=== PATIENT | female | born 1975 | race Caucasian/White ===

== ENCOUNTER → 2022-01-02 | Outpatient (CLI) | payer BC ==
--- NOTE | 2022-01-02 11:55 | MM ---
Reason for Exam: Clinical finding. Indicated Problems: Palpable abnormality. Patient History: Menarche at age 10. Hysterectomy at age 38. Postmenopausal. Paternal grandmother had breast cancer, age 40. Risk Values: Trinity 5 year model risk: 0.7%. NCI Lifetime model risk: 6.7%. Tissue Density: The breast tissue is heterogeneously dense. This may lower the sensitivity of mammography. Findings: Analyzed By CAD. Microclip lateral left breast from prior biopsy. There is underlying 1.3 cm upper outer quadrant circumscribed nodularity on the left, posterior depth, possibly present on the 2017 exam. Possible distortion on the CC view did not clearly persist. Further ultrasound evaluation recommended. On the right, there is a scar marker along the upper outer quadrant. Underlying architectural distortion. Chronic nodularity 6:00 right breast further ultrasound evaluation recommended. Overall Assessment: Incomplete: need additional imaging evaluation, BI-RAD 0 Management: Diagnostic Breast Ultrasound of both breasts. Targeted to the upper outer quadrant 9:00 to 12:00 right breast and upper outer left breast, 11:00 to 3:00. Electronically signed and approved by: Aisha Moreno M.D. Radiologist
--- NOTE | 2022-01-02 12:33 | USB ---
Reason for Exam: Clinical finding. Patient History: Menarche at age 10. Hysterectomy at age 38. Postmenopausal. Paternal grandmother had breast cancer, age 40. Risk Values: Trinity 5 year model risk: 0.7%. NCI Lifetime model risk: 6.7%. Technique: Method: Targeted. Findings: The upper outer quadrant of both breasts and the axilla of both breasts were scanned. Targeted ultrasound right breast upper-outer quadrant 9:00 to 12:00 including the subareolar region and axilla. Corresponding to the 10:00 palpable site, also, incidentally just below the patient's scar marker, there is a very heterogeneous irregular area measuring 2.3 x 2.1 x 1.6 cm. Unclear if this represents scar or an underlying mass. Tissue sampling is recommended. No other solid or cystic lesion or axillary lymphadenopathy. Targeted ultrasound left breast upper outer quadrant 11:00 to 3:00 including the subareolar region and axilla. Multiple benign cysts are present, largest at the 1:00 position measuring 1.1 x 0.9 x 0.6 cm. No axillary adenopathy. . Overall Assessment: Suspicious, BI-RAD 4 Management: Ultrasound Core Biopsy of the right breast. 10:00 palpable mass versus scar. Results were given to the patient verbally at the time of exam. Electronically signed and approved by: Aisha Moreno M.D. Radiologist
== END | disposition home or self-care (01) ==
LOC: RADMAMWWP 10:46
PROVIDERS: ATTEND Family Medicine
DX: N63.10 Unspecified lump in the right breast, unspecified quadrant (principal); Z78.0 Asymptomatic menopausal state; Z80.3 Family history of malignant neoplasm of breast; Z98.890 Other specified postprocedural states
CPT/HCPCS: 77062; 77066

== ENCOUNTER → 2022-01-21 | Day surgery (SDC) | payer BC ==
--- NOTE | 2022-01-21 16:37 | USB ---
Risk Values: Trinity 5 year model risk: 0.7%. NCI Lifetime model risk: 6.7%. Prior Study Comparison: 01/02/2022 Bilateral US breast limited BILJUHI, [facility]. 01/02/2022 Bilateral MG 3D diag mammo w/cad RT, [facility]. Pathology Description: Location: 10 o'clock. Marker Left Behind. Needle Type: Mammotome Cores: 7 Gauge: 13 The procedure of ultrasound guided core biopsy was explained to the patient. Benefits, alternatives, and risks were discussed. An informed consent was then obtained. The patient was placed in supine positioning for imaging and for the procedure. The overlying skin was prepped and draped in usual sterile fashion. Lidocaine buffered with bicarbonate was used as anesthetic into the skin and subcutaneous tissue up to area of concern in the 10:00 right breast. A aimee was made with surgical scalpel. Under ultrasound guidance, a 13-gauge vacuum-assisted mammotome biopsy gun was used to obtain 6 core samples. As the biopsy site was very dense and we were concerned about inadequate specimen, an additional core was obtained with the Celero device. Following this, a Hydromark clip was left in lesion. The patient tolerated the procedure well without any immediate complication. The patient was kept in the radiology department for short stay after the procedure and then discharged home in stable condition. Postprocedure mammogram: The patient was transferred to mammography for physician ordered post procedure mammogram for clip placement verification. Post procedure mammogram shows clip in place. Impression: Note that clinical suspicion increased during the course of the biopsy. If results return benign, we would suggest reporting it as discordant and referring the patient to a breast surgeon for further clinical assessment as the area is palpable. Successful, uncomplicated ultrasound guided core biopsy of the extensive shadowing area of dense tissue corresponding to the palpable 10:00 site in the right breast, full pathology results to follow. Pathology Results: Results pending. Electronically signed and approved by: Aisha Moreno M.D. Radiologist
--- NOTE | 2022-01-31 10:33 | MM ---
Reason for Exam: Post Procedure Mammogram. Patient History: Menarche at age 10. Hysterectomy at age 38. Postmenopausal. Paternal grandmother had breast cancer, age 40. Risk Values: Trinity 5 year model risk: 0.7%. NCI Lifetime model risk: 6.7%. Prior Study Comparison: 01/02/2022 Bilateral US breast limited BILAT, [facility]. 01/02/2022 Bilateral MG 3D diag mammo w/cad RT, [facility]. Tissue Density: Right: The breast tissue is heterogeneously dense. This may lower the sensitivity of mammography. Overall Assessment: Post procedure mammogram for marker placement Management: Surgical Consultation of the right breast. Diagnostic Breast MRI of the right breast. Also, recommend MRI given poor delineation of mass on ultrasound and to exclude contralateral disease. Electronically signed and approved by: Aisha Moreno M.D. Radiologist
== END ==
LOC: RADUSWWP 12:50
PROVIDERS: ATTEND Family Medicine
DX: C50.411 Malignant neoplasm of upper-outer quadrant of right female breast (principal); Z78.0 Asymptomatic menopausal state
CPT/HCPCS: 88305; 88342; 88341; 77065; 19083; A4648

== ENCOUNTER → 2022-02-12 | Outpatient (CLI) | payer BC ==
[2022-02-12 11:00] VITALS: BP 136/82; PULSE 67; RESP 16; TEMP 98.2
--- NOTE | 2022-02-12 11:44 | P.GSHP ---
History of Present Illness H&P Date: 02/12/22 Chief Complaint: Invasive ductal carcinoma right breast Malou is a 46-year-old white female seen in consultation for Dr. Reyes regarding a biopsy-proven invasive ductal carcinoma of the right breast. She underwent a bilateral mammogram on . This revealed on the right a scar marker and some underlying architectural distortion. This led to additional workup of the right breast including an ultrasound which led to an ultrasound- guided core biopsy on [id number]. On the diagnostic ultrasound she was noted to have in the left breast a 2.3 cm heterogeneous irregular area. On the left breast cyst were identified but no lesions of concern. The biopsy revealed ER/OK positive HER-2/franko negative G2 invasive ductal carcinoma with lobular features. She had a right breast biopsy in the past 1994 which was benign. She had a left breast needle biopsy in the past, about 5 years ago which was benign. She could feel a lesion in her right breast for about 6 months. It did increase in size. It is painful. She is not complaining of any nipple discharge or skin changes. She is not complaining of any recent trauma or infection in the breast. Caffiene: 2 cups/day nicotine: stopped 6 years ago; used to smoke 1 PPD for 20 years chocolate: occasional Family History: paternal grandmother breast cancer 40 paternal cousin: breast cancer 56 Hormonal History: menarche: 10 M2 partial hysterectomy abnormal cells at 38; they left her ovaries hormones: none BCP: none Surgical History: Partial hysterectomy did not take ovaries Tonsillectomy Cyst removed right breast cyst removed right wrist Medical History: HTN hypothyroid double vision Social HIstory: nicotine: as above alcohol: none drugs: none - Constitutional Constitutional: Denies chills, Denies fever - EENT Eyes: denies blurred vision, denies pain Ears: deny: decreased hearing, tinnitus Ears, nose, mouth and throat: Denies headache, Denies sore throat - Breasts Breasts: bilateral: as per HPI - Cardiovascular Cardiovascular: Denies chest pain, Denies shortness of breath - Respiratory Respiratory: Denies cough, Denies 7 - Gastrointestinal Gastrointestinal: Denies abdominal pain, Denies diarrhea, Denies nausea, Denies vomiting - Genitourinary (Female) Genitourinary: Denies dysuria, Denies hematuria - Menstruation Menstruation: Reports post hysterectomy - Musculoskeletal Musculoskeletal: Denies myalgias - Integumentary Integumentary: Denies pruritus, Denies rash - Neurological Neurological: Denies numbness, Denies weakness - Psychiatric Psychiatric: Denies anxiety, Denies depression - Endocrine Comment: hypothyroid Endocrine: Denies fatigue, Denies weight change - Hematologic/Lymphatic Comment: none - Allergic/Immunologic Allergic/Immunologic: Reports as per HPI Past Medical History Past Medical History: Hypertension, Thyroid Disorder Additional Past Medical History / Comment(s): Hypothyroid.. History of Any Multi-Drug Resistant Organisms: None Reported Past Surgical History: Hysterectomy, Tonsillectomy Additional Past Surgical History / Comment(s): Right Breast incisional breast biopsy 1989??. Right wrist cyst removal. Past Anesthesia/Blood Transfusion Reactions: No Reported Reaction Past Psychological History: No Psychological Hx Reported Smoking Status: Former smoker Past Alcohol Use History: None Reported Additional Past Alcohol Use History / Comment(s): quit smoling 10 years ago Past Drug Use History: None Reported Medications and Allergies Home Medications Medication Instructions Recorded Confirmed Type Metoprolol Succinate [Toprol XL] 50 mg PO DAILY 01/08/22 02/12/22 History Thyroid,Pork [[place] Thyroid] 90 mg PO DAILY 01/08/22 02/12/22 History hydrALAZINE HCL 75 mg PO DAILY 01/08/22 02/12/22 History Allergies Allergy/AdvReac Type Severity Reaction Status Date / Time No Known Allergies Allergy Verified 02/12/22 10:54 Surgical - Exam Vital Signs Temp Pulse Resp BP Pulse Ox 98.2 F 67 16 136/82 95 02/12/22 10:55 02/12/22 10:55 02/12/22 10:55 02/12/22 10:55 02/12/22 10:55 - General no distress - Eyes normal ocular movement - ENT no hearing loss, no congestion - Neck trachea midline - Respiratory normal respiratory effort, clear to auscultation - Cardiovascular Rhythm: regular Heart Sounds: normal: S1, S2 - Abdomen Abdomen: soft, non tender, no guarding, no rigid, no rebound - Integumentary normal turgor - Neurologic no disoriented, no combative - Musculoskeletal normal gait - Psychiatric oriented to time, oriented to person, oriented to place, speech is normal, memory intact Breast Exam: BRA: 38D inspection: Bilateral grade 2/3 ptosis, right breast larger than left breast Palpation: Right breast: Multiple positional exam fibrocystic changes, ecchymosis from recent biopsy, upper outer quadrant approximately 2-1/2 cm area of nodularity otherwise no dominant masses or nodules of concern Right axilla: No adenopathy of concern Left breast: Multi-positional exam fibrocystic changes no discrete dominant masses or nodules of concern Left axilla: No adenopathy of concern Results Mammogram and ultrasound personally reviewed Assessment and Plan Assessment: Impression: Right breast invasive ductal carcinoma, T2 N0 M0 ER +OK+sitive HER-2/franko -G2 Plan: Presentation of case at tumor board Treatment options discussed with patient and her Cc: Dr. Reyes
== END ==
LOC: WWCWWP 10:41
PROVIDERS: ATTEND Surgery
DX: D05.11 Intraductal carcinoma in situ of right breast (principal); E03.9 Hypothyroidism, unspecified; I10 Essential (primary) hypertension; Z87.891 Personal history of nicotine dependence; Z79.899 Other long term (current) drug therapy

== ENCOUNTER → 2022-03-01 | Outpatient (CLI) | payer BC ==
--- NOTE | 2022-03-03 12:46 | BMR ---
EXAMINATION TYPE: MR breast BILAT wo/w con DATE OF EXAM: 03/03/2022 COMPARISON: Diagnostic 3-D bilateral breast mammogram January 02, 2022 BI-RADS 0. Bilateral breast ul trasound January 02, 2022 BI-RADS 4. HISTORY: Breast Ca newly diagnosed right-sided on biopsy January 21, 2022 invasive ductal carcinoma with lobular features. TECHNIQUE: A series of fat and water weighted images in the long and short axis views of both breasts are obtained in conjunction with dynamic contrast MRI with subtraction technique. The patient was i njected with 7 mL intravenous Gadavist gadolinium contrast. Three-dimensional and additional postpr ocessing imaging is created on independent workstation and reviewed during official interpretation of this study. FINDINGS: Heterogeneously dense fibroglandular tissue is redemonstrated bilaterally. T2 and STIR-weig hted images show multiple thin-walled cysts of varying size and shape scattered throughout fibrogland ular tissue bilaterally, findings correlate with bilateral breast ultrasound January 02, 2022. There are benign-appearing bilateral axillary lymph nodes present. Dynamic postcontrast imaging shows moder ate to severe background glandular enhancement making evaluation slightly suboptimal. With regards to the left breast there are several levels of diminished T1 signal or hemosiderin depos ition along with thin-walled cysts. Artifact from biopsy clip is present upper outer aspect. No great er than 5 mm enhancing masses are seen. No abnormal skin thickening is noted. The chest wall appears intact. With regards to the right breast there is artifact from biopsy clip seen axial image 107 series 401 m iddle to posterior depth outer slightly upper aspect. There is heterogeneous enhancement involving si gnificant portion of the outer half of the right breast centered mostly in the upper portion correspo nding to ill-defined lesion on ultrasound. The anterior to posterior length of abnormal nonmass enhan cement measures nearly 11.0 cm AP diameter by roughly 5 cm craniocaudal diameter by roughly 4.0 cm tr ansverse diameter when accounting for the adjacent small nodular areas of enhancement. No suspicious enhancing masses in the medial aspect right breast. No abnormal skin thickening. The chest wall is in tact. There are 2 prominent feeding vessels along the medial aspect of the right breast are noted. IMPRESSION: Known malignancy right breast has extensive involvement greatest in the anterior to poste rior dimension as detailed above. No MRI evidence for invasive malignancy in the left breast. No path ologic adenopathy noted. BI-RADS 6 biopsy-proven cancer right breast BI-RADS 2 benign findings left breast. Recommendation: Appropriate surgical and oncologic management of known left breast neoplasm.
== END | disposition home or self-care (01) ==
LOC: RADMRIMAIN 09:17
PROVIDERS: ATTEND Surgery
DX: C50.411 Malignant neoplasm of upper-outer quadrant of right female breast (principal)
CPT/HCPCS: 77049; A9585

== ENCOUNTER → 2022-03-25 | Outpatient (CLI) | payer BC ==
--- NOTE | 2022-03-25 12:22 | CT ---
EXAMINATION TYPE: CT ChestAbdPelvis w con DATE OF EXAM: 03/25/2022 COMPARISON: None HISTORY: Neoplasm right breast CT DLP: 1516 mGycm CONTRAST: CT scan of the chest, abdomen and pelvis is performed with Oral Contrast and with IV Contrast, patien t injected with 100 ml mL of Isovue 300. CT Chest: LUNGS: The lungs are clear and free of infiltrate or atelectasis. No pulmonary nodule or mass is det ected. No pleural effusion or CT evidence of interstitial lung disease. MEDIASTINUM: Thoracic aorta is of normal caliber. The heart is not enlarged. No evidence for media stinal mass or adenopathy. HILAR STRUCTURES: No evidence for mass. No hilar adenopathy is appreciated. OTHER: No significant abnormality. CONTRAST CT ABDOMEN AND PELVIS FINDINGS: LIVER/GB: No calcified gallstones. No space occupying hepatic lesion. Biliary tree is of normal ca liber. PANCREAS: No inflammation. No distinct mass. SPLEEN: No splenic enlargement. No lesion seen. ADRENALS: No nodule. No thickening. KIDNEYS/BLADDER: No hydronephrosis. 1.5 x 1.1 cm calculus lower pole right kidney. No distinct renal mass. BOWEL: Normal appendix. Normal bowel caliber. No inflammation. GENITAL ORGANS: No gross abnormality. LYMPH NODES: No greater than 1cm abdominal or pelvic lymph nodes are appreciated. AORTA: No significant abnormality. OSSEOUS STRUCTURES: No significant abnormality is seen. OTHER: No significant additional abnormality is seen. IMPRESSION: 1. No CT evidence to suggest metastatic disease to the chest abdomen or pelvis.
--- NOTE | 2022-03-25 16:07 | NM ---
EXAMINATION TYPE: NM bone scan whole body DATE OF EXAM: 03/25/2022 COMPARISON: Same day whole body CT study HISTORY: Breast cancer Delayed whole-body scanning was performed following the injection of 22.2 mCi Tc 99m MDP. Images acq uired 3 hours post injection. Whole body images in anterior and posterior projection along with addit ional spot images of the skull neck thorax and abdomen are all acquired. FINDINGS: No suspicious increased radiotracer uptake to suggest osseous metastatic disease to the bone or other suspicious abnormality. IMPRESSION: As above.
== END | disposition home or self-care (01) ==
LOC: RADNMMAIN 09:53
PROVIDERS: ATTEND Surgery
DX: C50.411 Malignant neoplasm of upper-outer quadrant of right female breast (principal)
CPT/HCPCS: 71260; 74177; 78306; A9503; Q9967

== ENCOUNTER → 2022-03-28 | Outpatient (CLI) | payer BC ==
[2022-03-28 14:30] VITALS: BP 150/94; PULSE 82; RESP 17; TEMP 98.7
--- NOTE | 2022-03-28 15:08 | P.PN ---
Subjective Progress Note Date: 03/28/22 Malou is a 46-year-old white female seen in consultation for Dr. Reyes regarding a biopsy-proven invasive ductal carcinoma of the right breast. She underwent a bilateral mammogram on . This revealed on the right a scar marker and some underlying architectural distortion. This led to additional workup of the right breast including an ultrasound which led to an ultrasound- guided core biopsy on 1119. On the diagnostic ultrasound she was noted to have in the left breast a 2.3 cm heterogeneous irregular area. On the left breast cyst were identified but no lesions of concern. The biopsy revealed ER/AK positive HER-2/franko negative G2 invasive ductal carcinoma with lobular features. She had a right breast biopsy in the past 1994 which was benign. She had a left breast needle biopsy in the past, about 5 years ago which was benign. She could feel a lesion in her right breast for about 6 months. It did increase in size. It is painful. She is not complaining of any nipple discharge or skin changes. She is not complaining of any recent trauma or infection in the breast. Genetic testing was performed which was negative Metastatic workup including bone scan and CT chest abdomen and pelvis was negative Oncotype was 44 Case was presented at tumor board on 132. Secondary to high Oncotype score this will be discussed with Dr. Lou for neoadjuvant chemotherapy. Breast MRI was performed which did not reveal any lesions of concern in the left breast, in the right breast heterogeneous enhancement involving the outer half was identified. The AP length of the abnormal enhancement was 11 cm x 5 cm. Caffiene: 2 cups/day nicotine: stopped 6 years ago; used to smoke 1 PPD for 20 years chocolate: occasional Family History: paternal grandmother breast cancer 40 paternal cousin: breast cancer 56 Hormonal History: menarche: 10 M2 partial hysterectomy abnormal cells at 38; they left her ovaries hormones: none BCP: none Surgical History: Partial hysterectomy did not take ovaries Tonsillectomy Cyst removed right breast cyst removed right wrist Medical History: HTN hypothyroid double vision Social HIstory: nicotine: as above alcohol: none drugs: none - Constitutional Constitutional: Denies chills, Denies fever - EENT Eyes: denies blurred vision, denies pain Ears: deny: decreased hearing, tinnitus Ears, nose, mouth and throat: Denies headache, Denies sore throat - Breasts Breasts: bilateral: as per HPI - Cardiovascular Cardiovascular: Denies chest pain, Denies shortness of breath - Respiratory Respiratory: Denies cough - Gastrointestinal Gastrointestinal: Denies abdominal pain, Denies diarrhea, Denies nausea, Denies vomiting - Genitourinary (Female) Genitourinary: Denies dysuria, Denies hematuria - Menstruation Menstruation: Reports post hysterectomy - Musculoskeletal Musculoskeletal: Denies myalgias - Integumentary Integumentary: Denies pruritus, Denies rash - Neurological Neurological: Denies numbness, Denies weakness - Psychiatric Psychiatric: Denies anxiety, Denies depression - Endocrine Comment: hypothyroid Endocrine: Denies fatigue, Denies weight change - Hematologic/Lymphatic Comment: none - Allergic/Immunologic Allergic/Immunologic: Reports as per HPI Past Medical History Past Medical History: Hypertension, Thyroid Disorder Additional Past Medical History / Comment(s): Hypothyroid.. History of Any Multi-Drug Resistant Organisms: None Reported Past Surgical History: Hysterectomy, Tonsillectomy Additional Past Surgical History / Comment(s): Right Breast incisional breast biopsy 1989??. Right wrist cyst removal. Past Anesthesia/Blood Transfusion Reactions: No Reported Reaction Past Psychological History: No Psychological Hx Reported Smoking Status: Former smoker Past Alcohol Use History: None Reported Additional Past Alcohol Use History / Comment(s): quit smoling 10 years ago Past Drug Use History: None Reported Medications and Allergies Home Medications Medication Instructions Recorded Confirmed Type Metoprolol Succinate [Toprol XL] 50 mg PO DAILY 01/08/22 02/12/22 History Thyroid,Pork [[place] Thyroid] 90 mg PO DAILY 01/08/22 02/12/22 History hydrALAZINE HCL 75 mg PO DAILY 01/08/22 02/12/22 History Allergies Allergy/AdvReac Type Severity Reaction Status Date / Time No Known Allergies Allergy Verified 02/12/22 10:54 Objective - Vital Signs Vital signs: Vital Signs Temp 98.7 F 03/28/22 14:28 Pulse 82 03/28/22 14:28 Resp 17 03/28/22 14:28 BP 150/94 03/28/22 14:28 Pulse Ox 96 03/28/22 14:28 FiO2 Intake & Output 03/27/22 03/28/22 03/28/22 18:59 06:59 18:59 Weight 72.575 kg - Constitutional General appearance: Present: cooperative - EENT Eyes: Present: EOMI ENT: Present: hearing grossly normal - Neck Neck: Present: normal ROM - Respiratory Respiratory: bilateral: CTA - Cardiovascular Heart sounds: normal: S1, S2 - Gastrointestinal General gastrointestinal: Present: soft - Integumentary Integumentary: Present: normal turgor - Musculoskeletal Musculoskeletal: Present: gait normal - Psychiatric Psychiatric: Present: A&O x's 3, appropriate affect, intact judgment & insight - Additional findings Additional findings: Breast Exam: BRA: 38D inspection: Bilateral grade 2/3 ptosis, right breast larger than left breast Palpation: Right breast: Multiple positional exam fibrocystic changes, ecchymosis from recent biopsy resolved, upper outer quadrant approximately 4-1/2 cm area of nodularity otherwise no dominant masses or nodules of concern Right axilla: No adenopathy of concern Left breast: Multi-positional exam fibrocystic changes no discrete dominant masses or nodules of concern Left axilla: No adenopathy of concern Assessment and Plan Assessment: Impression: Right breast invasive ductal carcinoma approximately 11 cm on MRI Right axilla no adenopathy of concern Metastatic workup negative Genetic testing negative Oncotype 44 Plan: Most likely neoadjuvant chemotherapy to shrink the tumor Patient would like to have a lumpectomy via a reduction mammoplasty incision appointment on Thursday Dr. Lou Cc: Dr. Reyes
== END ==
LOC: WWCWWP 14:14
PROVIDERS: ATTEND Surgery
DX: D05.11 Intraductal carcinoma in situ of right breast (principal)

== ENCOUNTER → 2022-06-19 | Outpatient (CLI) | payer BC ==
[2022-06-19 14:15] VITALS: BP 157/106; PULSE 104; RESP 18; TEMP 98.8
--- NOTE | 2022-06-19 14:36 | P.PN ---
Subjective Progress Note Date: 06/19/22 Progress Note Date: 03/28/22 Malou is a 46-year-old white female seen in consultation for Dr. Reyes regarding a biopsy-proven invasive ductal carcinoma of the right breast. She underwent a bilateral mammogram on . This revealed on the right a scar marker and some underlying architectural distortion. This led to additional workup of the right breast including an ultrasound which led to an ultrasound- guided core biopsy on [id number]. On the diagnostic ultrasound she was noted to have in the left breast a 2.3 cm heterogeneous irregular area. On the left breast cyst were identified but no lesions of concern. The biopsy revealed ER/[place] positive HER-2/franko negative G2 invasive ductal carcinoma with lobular features. She had a right breast biopsy in the past 1994 which was benign. She had a left breast needle biopsy in the past, about 5 years ago which was benign. She could feel a lesion in her right breast for about 6 months. It did increase in size. It is painful. She is not complaining of any nipple discharge or skin changes. She is not complaining of any recent trauma or infection in the breast. Genetic testing was performed which was negative Metastatic workup including bone scan and CT chest abdomen and pelvis was negative Oncotype was 44 Case was presented at tumor board on 1322. Secondary to high Oncotype score this will be discussed with Dr. Lou for neoadjuvant chemotherapy. Breast MRI was performed which did not reveal any lesions of concern in the left breast, in the right breast heterogeneous enhancement involving the outer half was identified. The AP length of the abnormal enhancement was 11 cm x 5 cm. 06-19-22 The patient received 4 courses of A/C, she will have 4 courses of Taxol she has received 1. This is given every 2 weeks. She believes that the tumor has decreased in size. She is tolerating the chemotherapy but complaining of fatigue. Caffiene: 2 cups/day nicotine: stopped 6 years ago; used to smoke 1 PPD for 20 years chocolate: occasional Family History: paternal grandmother breast cancer 38 paternal cousin: breast cancer 56 Hormonal History: menarche: 10 M2 partial hysterectomy abnormal cells at 38; they left her ovaries hormones: none BCP: none Surgical History: Partial hysterectomy did not take ovaries Tonsillectomy Cyst removed right breast cyst removed right wrist Medical History: HTN hypothyroid double vision Social HIstory: nicotine: as above alcohol: none drugs: none - Constitutional Constitutional: Denies chills, Denies fever - EENT Eyes: denies blurred vision, denies pain Ears: deny: decreased hearing, tinnitus Ears, nose, mouth and throat: Denies headache, Denies sore throat - Breasts Breasts: bilateral: as per HPI - Cardiovascular Cardiovascular: Denies chest pain, Denies shortness of breath - Respiratory Respiratory: Denies cough - Gastrointestinal Gastrointestinal: Denies abdominal pain, Denies diarrhea, Denies nausea, Denies vomiting - Genitourinary (Female) Genitourinary: Denies dysuria, Denies hematuria - Menstruation Menstruation: Reports post hysterectomy - Musculoskeletal Musculoskeletal: Denies myalgias - Integumentary Integumentary: Denies pruritus, Denies rash - Neurological Neurological: Denies numbness, Denies weakness - Psychiatric Psychiatric: Denies anxiety, Denies depression - Endocrine Comment: hypothyroid Endocrine: Denies fatigue, Denies weight change - Hematologic/Lymphatic Comment: none - Allergic/Immunologic Allergic/Immunologic: Reports as per HPI Past Medical History Past Medical History: Hypertension, Thyroid Disorder Additional Past Medical History / Comment(s): Hypothyroid.. History of Any Multi-Drug Resistant Organisms: None Reported Past Surgical History: Hysterectomy, Tonsillectomy Additional Past Surgical History / Comment(s): Right Breast incisional breast biopsy 1989??. Right wrist cyst removal. Past Anesthesia/Blood Transfusion Reactions: No Reported Reaction Past Psychological History: No Psychological Hx Reported Smoking Status: Former smoker Past Alcohol Use History: None Reported Additional Past Alcohol Use History / Comment(s): quit smoling 10 years ago Past Drug Use History: None Reported Medications and Allergies Home Medications Medication Instructions Recorded Confirmed Type Metoprolol Succinate [Toprol XL] 50 mg PO DAILY 01/08/22 02/12/22 History Thyroid,Pork [[place] Thyroid] 90 mg PO DAILY 01/08/22 02/12/22 History hydrALAZINE HCL 75 mg PO DAILY 01/08/22 02/12/22 History Allergies Allergy/AdvReac Type Severity Reaction Status Date / Time No Known Allergies Allergy Verified 02/12/22 10:54 Objective - Vital Signs Vital signs: Vital Signs Temp 98.8 F 06/19/22 14:13 Pulse 104 H 06/19/22 14:13 Resp 18 06/19/22 14:13 BP 157/106 06/19/22 14:13 Pulse Ox 94 L 06/19/22 14:13 FiO2 Intake & Output 06/18/22 06/19/22 06/19/22 18:59 06:59 18:59 Weight 73.482 kg - Constitutional General appearance: Present: cooperative - EENT Eyes: Present: EOMI ENT: Present: hearing grossly normal - Neck Neck: Present: normal ROM - Respiratory Respiratory: bilateral: CTA - Cardiovascular Rhythm: regular Heart sounds: normal: S1, S2 - Gastrointestinal General gastrointestinal: Present: soft - Integumentary Integumentary: Present: normal turgor - Musculoskeletal Musculoskeletal: Present: gait normal - Psychiatric Psychiatric: Present: A&O x's 3, appropriate affect, intact judgment & insight - Additional findings Additional findings: Breast Exam: BRA: 38D inspection: Bilateral grade 2/3 ptosis, right breast larger than left breast Palpation: Right breast: Multiple positional exam fibrocystic changes, the area of tumor has decreased in size is approximately now 2-2-1/2 cm in the upper outer quadrant otherwise no dominant masses or nodules of concern Right axilla: No adenopathy of concern Left breast: Multi-positional exam fibrocystic changes no discrete dominant masses or nodules of concern Left axilla: No adenopathy of concern Assessment and Plan Assessment: Impression: Right breast invasive ductal carcinoma approximately 11 cm on MRI has decreased significantly to approximately 2 and half centimeters of palpable area Right axilla no adenopathy of concern Metastatic workup negative Genetic testing negative Oncotype 44 Plan: Continue neoadjuvant chemotherapy to shrink the tumor Patient would like to have a lumpectomy via a reduction mammoplasty incision Follow up here the third week in June, we will get a tentative or date Cc: Dr. Reyes Additional CC's:
== END ==
LOC: WWCWWP 14:00
PROVIDERS: ATTEND Surgery
DX: D05.11 Intraductal carcinoma in situ of right breast (principal); E03.9 Hypothyroidism, unspecified; I10 Essential (primary) hypertension; N60.02 Solitary cyst of left breast; Z80.3 Family history of malignant neoplasm of breast; Z87.891 Personal history of nicotine dependence; Z79.899 Other long term (current) drug therapy; Z91.048 Other nonmedicinal substance allergy status

== ENCOUNTER → 2022-07-31 | Outpatient (CLI) | payer BC ==
--- NOTE | 2022-08-01 07:22 | BMR ---
EXAMINATION TYPE: MR breast BILAT wo/w con DATE OF EXAM: 07/31/2022 COMPARISON: Prior MRI bilateral breasts March 01, 2022 HISTORY: Right-sided breast cancer follow-up study after treatment. Breast Ca newly diagnosed right-s ided on biopsy January 21, 2022 invasive ductal carcinoma with lobular features. TECHNIQUE: A series of fat and water weighted images in the long and short axis views of both breasts are obtained in conjunction with dynamic contrast MRI with subtraction technique. The patient was i njected with 7.5 mL intravenous Gadavist gadolinium contrast. Three-dimensional and additional post processing imaging is created on independent workstation and reviewed during official interpretation of this study. FINDINGS: Heterogeneously dense fibroglandular tissue is redemonstrated bilaterally. T2 and STIR-weig hted images redemonstrate multiple thin-walled cysts of varying size and shape scattered throughout f ibroglandular tissue bilaterally. There are benign-appearing bilateral axillary lymph nodes redemonst rated. Dynamic postcontrast imaging shows mild to minimal background enhancement on current study. With regards to the left breast there are several levels of diminished T1 signal or hemosiderin depos ition along with thin-walled cysts centrally and scattered laterally. Artifact from biopsy clip is pr esent upper outer aspect. No greater than 5 mm enhancing masses or pathologic enhancement is seen. No abnormal skin thickening is noted. The chest wall appears intact. With regards to the right breast there is artifact from biopsy clip seen best axial image 34 series 5 01 middle depth outer slightly upper aspect. There is marked improvement in postcontrast enhancement with focal area of nonmass enhancement just posterior to the clip extending posteriorly and slightly laterally and slightly superiorly measuring approximately 2.1 x 0.9 cm current study image 692 serie s 801 significantly improved from the nonmass enhancement with nodularity extending anteriorly and oc cupying significant lateral portion of the right breast on prior study. Computer measures this residu al nonmass enhancement at 1.9 x 0.7 x 1.4 cm. No new areas of pathologic enhancement in the right brijesh ast. No abnormal skin thickening. The chest wall remain intact. IMPRESSION: Partial positive treatment response to known malignancy right breast is seen as detailed above. No MRI evidence for invasive malignancy in the left breast or new malignancy in the right [address]. No pathologic adenopathy noted. BI-RADS 6 biopsy-proven cancer right breast BI-RADS 2 benign findings left breast. Recommendation: Appropriate surgical and oncologic management of known right breast neoplasm.
== END | disposition home or self-care (01) ==
LOC: RADMRIMAIN 11:30
PROVIDERS: ATTEND Internal Medicine
DX: C50.411 Malignant neoplasm of upper-outer quadrant of right female breast (principal)
CPT/HCPCS: 77049; A9585

== ENCOUNTER → 2022-08-21 | Outpatient (CLI) | payer BC ==
--- NOTE | 2022-08-21 12:47 | P.PN ---
Subjective Progress Note Date: 08/21/22 Principal diagnosis: invasive lobular cancer left breast [id number] Malou is a 46-year-old white female seen in consultation for Dr. Reyes regarding a biopsy-proven invasive ductal carcinoma of the right breast. She underwent a bilateral mammogram on . This revealed on the right a scar marker and some underlying architectural distortion. This led to additional workup of the right breast including an ultrasound which led to an ultrasound- guided core biopsy on [id number]. On the diagnostic ultrasound she was noted to have in the right breast a 2.3 cm heterogeneous irregular area. On the left breast cyst were identified but no lesions of concern. The biopsy revealed ER/[place] positive HER-2/franko negative G2 invasive ductal carcinoma with lobular features. She had a right breast biopsy in the past 1994 which was benign. She had a left breast needle biopsy in the past, about 5 years ago which was benign. She could feel a lesion in her right breast for about 6 months. It did increase in size. It is painful. She is not complaining of any nipple discharge or skin changes. She is not complaining of any recent trauma or infection in the breast. Genetic testing was performed which was negative Metastatic workup including bone scan and CT chest abdomen and pelvis was negative Oncotype was 44 Case was presented at tumor board on 1322. Secondary to high Oncotype score this will be discussed with Dr. Lou for neoadjuvant chemotherapy. Breast MRI was performed which did not reveal any lesions of concern in the left breast, in the right breast heterogeneous enhancement involving the outer half was identified. The AP length of the abnormal enhancement was 11 cm x 5 cm. 06-19-22 The patient received 4 courses of A/C, she will have 4 courses of Taxol she has received 1. This is given every 2 weeks. She believes that the tumor has decreased in size. She is tolerating the chemotherapy but complaining of fatigue. 08-21-22 Ifrah has completed her soco-adjuvant chemotherapy; approximately 4 weeks ago for a [id number]-[id number] invasive lobular cancer of the right breast. She feels the tumor has decreased in size. Breast MRI performed on 6122. This revealed partial positive treatment response to no malignancy in the right breast the lesion has decreased from 11 cm to 2.1 x 0.9 cm. None mass enhancement is approximately 1.9 x 1.4 cm. No new areas of path logic enhancement in the right breast are identified. No lesions of concern are noted in the left breast No pathologic adenopathy was noted Caffiene: 2 cups/day nicotine: stopped 6 years ago; used to smoke 1 PPD for 20 years chocolate: occasional Family History: paternal grandmother breast cancer 40 paternal cousin: breast cancer 56 Hormonal History: menarche: 10 M2 partial hysterectomy abnormal cells at 38; they left her ovaries hormones: none BCP: none Surgical History: Partial hysterectomy did not take ovaries Tonsillectomy Cyst removed right breast cyst removed right wrist Medical History: HTN hypothyroid double vision Social HIstory: nicotine: as above alcohol: none drugs: none - Constitutional Constitutional: Denies chills, Denies fever - EENT Eyes: denies blurred vision, denies pain Ears: deny: decreased hearing, tinnitus Ears, nose, mouth and throat: Denies headache, Denies sore throat - Breasts Breasts: bilateral: as per HPI - Cardiovascular Cardiovascular: Denies chest pain, Denies shortness of breath - Respiratory Respiratory: Denies cough - Gastrointestinal Gastrointestinal: Denies abdominal pain, Denies diarrhea, Denies nausea, Denies vomiting - Genitourinary (Female) Genitourinary: Denies dysuria, Denies hematuria - Menstruation Menstruation: Reports post hysterectomy - Musculoskeletal Musculoskeletal: Denies myalgias - Integumentary Integumentary: Denies pruritus, Denies rash - Neurological Neurological: Denies numbness, Denies weakness - Psychiatric Psychiatric: Denies anxiety, Denies depression - Endocrine Comment: hypothyroid Endocrine: Denies fatigue, Denies weight change - Hematologic/Lymphatic Comment: none - Allergic/Immunologic Allergic/Immunologic: Reports as per HPI Past Medical History Past Medical History: Hypertension, Thyroid Disorder Additional Past Medical History / Comment(s): Hypothyroid.. History of Any Multi-Drug Resistant Organisms: None Reported Past Surgical History: Hysterectomy, Tonsillectomy Additional Past Surgical History / Comment(s): Right Breast incisional breast biopsy 1989??. Right wrist cyst removal. Past Anesthesia/Blood Transfusion Reactions: No Reported Reaction Past Psychological History: No Psychological Hx Reported Smoking Status: Former smoker Past Alcohol Use History: None Reported Additional Past Alcohol Use History / Comment(s): quit smoling 10 years ago Past Drug Use History: None Reported Medications and Allergies Home Medications Medication Instructions Recorded Confirmed Type Metoprolol Succinate [Toprol XL] 50 mg PO DAILY 01/08/22 02/12/22 History Thyroid,Pork [[place] Thyroid] 90 mg PO DAILY 01/08/22 02/12/22 History hydrALAZINE HCL 75 mg PO DAILY 01/08/22 02/12/22 History Allergies Allergy/AdvReac Type Severity Reaction Status Date / Time No Known Allergies Allergy Verified 02/12/22 10:54 Objective - Constitutional General appearance: Present: cooperative - EENT Eyes: Present: EOMI ENT: Present: hearing grossly normal - Neck Neck: Present: normal ROM - Respiratory Respiratory: bilateral: CTA - Cardiovascular Rhythm: regular Heart sounds: normal: S1, S2 - Gastrointestinal General gastrointestinal: Present: soft - Integumentary Integumentary: Present: normal turgor - Musculoskeletal Musculoskeletal: Present: gait normal - Psychiatric Psychiatric: Present: A&O x's 3, appropriate affect, intact judgment & insight - Additional findings Additional findings: Breast Exam: BRA: 38D inspection: Bilateral grade 2/3 ptosis, right breast larger than left breast Palpation: Right breast: Multiple positional exam fibrocystic changes, the area of tumor has decreased in size is approximately now 2-2-1/2 cm in the upper outer quadrant otherwise no dominant masses or nodules of concern Right axilla: No adenopathy of concern Left breast: Multi-positional exam fibrocystic changes no discrete dominant masses or nodules of concern Left axilla: No adenopathy of concern Assessment and Plan Assessment: Impression: Right breast invasive ductal carcinoma approximately 11 cm on MRI has decreased significantly to approximately 2 and half centimeters of palpable area Right axilla no adenopathy of concern Metastatic workup negative Genetic testing negative Oncotype 44 Plan: neoadjuvant chemotherapy to shrink the tumor completed Patient would like to have a lumpectomy After discussion with the patient and her the plan is for Needle localization right breast excisional lumpectomy, possible onco- plastic tissue transfer, right sentinel node biopsy, possible right axillary node dissection We marked and discussed the possibility of doing this via reduction mammoplasty incision however after discussion the patient wishes to have this done without mammoplasty or mastopexy incision pre-op clearance DR. Reyes Cc: Dr. Reyes
[2022-08-21 14:08] VITALS: BP 128/83; PULSE 74; RESP 17; TEMP 97.9
== END ==
LOC: WWCWWP 11:34
PROVIDERS: ATTEND Surgery
DX: C50.911 Malignant neoplasm of unspecified site of right female breast (principal); C50.912 Malignant neoplasm of unspecified site of left female breast; N60.02 Solitary cyst of left breast; I10 Essential (primary) hypertension; E03.9 Hypothyroidism, unspecified; H53.2 Diplopia; Z91.048 Other nonmedicinal substance allergy status; Z80.3 Family history of malignant neoplasm of breast; Z17.0 Estrogen receptor positive status [ER+]; Z79.899 Other long term (current) drug therapy; Z87.891 Personal history of nicotine dependence; Z51.11 Encounter for antineoplastic chemotherapy

== ENCOUNTER 2022-08-26 09:25 | Day surgery (SDC) | payer BC ==
[2022-08-21 14:58] VITALS: BMI 29.8
[~2022-08-26 09:25] MED LIST: DEXAMETHASONE SOD PHOSPHATE 4 MG/ML 1 ML VIAL IV ONE; HEPARIN SODIUM,PORCINE/PF 5,000 UNIT/0.5 ML SYRINGE SQ PRN; HYDROmorphone 0.5 MG/0.5 ML SYRINGE IVP PRN; LACTATED RINGERS 1,000 ML IV SCH; LIDOCAINE 1% (10MG/ML) FOR IV START INTRADERMA PRN; MIDAZOLAM 2 MG/2 ML VIAL IV PRN; ONDANSETRON 4 MG/2 ML VIAL IVP ONE; Pre Op ABX Message 1 EACH MISC MISCELLANE ONE
[2022-08-26] MEDS ORDERED: ALPRAZolam 0.5 MG TAB ONE (09:58)
[2022-08-26 10:09] VITALS: RESP 16
[2022-08-26] MEDS ORDERED: ALPRAZolam 0.5 MG TAB PO ONE ×2 (10:12)
--- NOTE | 2022-08-26 11:00 | P.NAPBC ---
NAPBC Queries - NAPBC Queries Was patient's case review presented at [facility] tumor board? If no, comment.: Yes Was patient's pathology reviewed at [facility]? If no, comment.: Yes Was breast conservation surgery offered? If no, comment.: Yes Was sentinel node biopsy offered? If no, comment.: Yes Was diagnosis confirmed by percutaneous core biopsy? If no, comment.: Yes Is patient mastectomy patient?: No Was a preop referral to reconstructive surgeon offered?: No Clinical Stage: [id number]+Pr+Her2-G2 right breast invasive lobular cancer prior to chemo was 11 Cm
[2022-08-26] MEDS ORDERED: LIDOCAINE 1% INJ 10MG/ML (20 ML MDV) SQ ONE (11:31)
[2022-08-26] MEDS ORDERED: DEXAMETHASONE SOD PHOSPHATE 4 MG/ML 1 ML VIAL IVP ONE (12:12)
[2022-08-26] MEDS ORDERED: SCOPOLAMINE 1 MG/72 HR PATCH TRANSDERM ONE (12:13)
[2022-08-26] MEDS ORDERED: ROCURONIUM 10 MG/ML (5 ML VIAL) IV ONE (12:14)
[2022-08-26] MEDS ORDERED: PROPOFOL 10 MG/ML 20 ML VIAL IV ONE (12:14)
[2022-08-26] MEDS ORDERED: PHENYLEPHRINE-0.9% NACL SYG 1,000 MCG/10 ML SYRINGE ONE (12:14)
[2022-08-26] MEDS ORDERED: HYDROmorphone (PF) 1 MG/ML ONE (12:14)
[2022-08-26] MEDS ORDERED: SUCCINYLCHOLINE CHLORIDE 200 MG/10 ML VIAL IV ONE (12:14)
[2022-08-26] MEDS ORDERED: fentaNYL (PF) 50 MCG/ML 2 ML AMP ONE (12:14)
[2022-08-26] MEDS ORDERED: MIDAZOLAM 2 MG/2 ML VIAL ONE (12:14)
[2022-08-26] MEDS ORDERED: LIDOCAINE 2% INJ 20 MG/ML (2 ML VIAL) ONE (12:14)
[2022-08-26] MEDS ORDERED: SODIUM CHLORIDE 0.9% 50 ML with ceFAZolin 2,000 MG IV ONE ×2 (12:19)
[2022-08-26] MEDS ORDERED: SODIUM CHLORIDE 0.9% 100 ML BAG ONE (12:19)
[2022-08-26] MEDS ORDERED: ceFAZolin 1,000 MG VIAL ONE (12:19)
[2022-08-26] MEDS ORDERED: LACTATED RINGERS 1,000 ML IV ONE (13:20)
--- NOTE | 2022-08-26 14:05 | P.OP ---
Date of Procedure: 08/26/22 Preoperative Diagnosis: Right breast invasive ductal carcinoma Postoperative Diagnosis: Same Procedure(s) Performed: Right breast sentinel node biopsy, right breast needle localization lumpectomy, onco-plastic tissue transfer 80 cm Anesthesia: CURTIS Surgeon: Dianna Comer Estimated Blood Loss (ml): 15 IV fluids (ml): 900 Pathology: other (Breast tissue, sentinel lymph node) Condition: stable Disposition: same day Indications for Procedure: Biopsy-proven right breast invasive ductal carcinoma Operative Findings: Fibrofatty breast tissue Description of Procedure: The patient was first seen in the radiology department. Localization with 2 needles of the area of concern in the right breast was performed. Additionally radiotracer was injected in the periareolar region. The patient was brought to the operative suite and following induction of anesthesia the neoprobe was used to interrogate the axilla. Radioactivity was identified. The right breast and axilla were prepped and draped in a sterile fashion. Using the neoprobe the area of greatest radioactivity in the axilla was identified. An incision was made and carried down to the radioactive lymph node. This was grasped using an Allis clamp. Careful dissection was performed and this was removed. The 10 second count on the lymph node was 76,196. The background count was 75. No additional lymph nodes of concern were palpated. The axilla was well irrigated. The deep tissues were closed using 3-0 Vicryl suture. This was followed by closure of this subcutaneous tissue with 3-0 Vicryl suture and closure of the skin with a 4-0 Monocryl. The area of the breast was then approached. An incision was made between both areas. The skin was resected in this area. Dissection was performed down to the pectoralis muscle. Surrounding tissue was excised. Hemostasis was attained using electrocautery device as well as the Harmonic scalpel. After we assured that hemostasis was attained the specimen was painted for orientation. Radiograph of the specimen revealed the area of concern had been removed. Additional margins were obtained superior inferior medial and laterally. Posteriorly dissection was onto the pectoralis muscle. Anteriorly the skin was taken. The patient had a medial and and lateral pillar developed. The medial pillar was 4 cm x 8 cm, the cavity was 8 centimeters by 3 cm, and the lateral pillar was 8 centimeters by 3 cm. A total of 80 cm of tissue was transferred. The previous were brought together and secured using 3- 0 Vicryl suture. Surgicel and pelvis was placed prior to doing this. Titanium clips were placed to zulay the cavity. The subcutaneous tissue was closed using 3-0 Vicryl suture. The subcuticular tissue was closed using 4-0 Monocryl. A nylon skin suture was placed. The patient tolerated the procedure in stable condition. All instrument and sponge counts were correct at the end of the case.
[2022-08-26 14:26] VITALS: TEMP 97
--- NOTE | 2022-08-26 14:29 | NM ---
EXAMINATION TYPE: NM sentinel node injection DATE OF EXAM: 08/26/2022 COMPARISON: NONE CLINICAL INDICATION: Female, 47 years old with history of BREAST CANCER C50.411; TECHNIQUE AND FINDINGS: The procedure of sentinel lymph node injection was explained to the patient. The benefits, alternatives, and risks were discussed. An informed consent was then obtained. Overlying skin is cleaned with sterile alcohol. Following this, 471 uCi Tc99m Tilmanocept was inject ed in the upper outer aspect of the right nipple intradermally. The patient tolerated the procedure well without any immediate complication. The patient was kept in the radiology department for short stay after the procedure and then taken to surgery for surgical p rocedure what is presumed intraoperative gamma probe will be used for sentinel lymph node detection. IMPRESSION: Right breast radiotracer injection for sentinel node localization as above.
--- NOTE | 2022-08-26 14:53 | USB ---
Findings: Grayscale imaging of the right breast was performed at 10:00 9 cm from the nipple. The lesion in question had a different morphology compared to pretreatment imaging. It was determined at that time to do mammography guided localization. Electronically signed and approved by: John Stewart DO
[2022-08-26] MEDS ORDERED: HYDROcodone/APAP 5-325MG 1 EACH TAB ONE (15:30)
[2022-08-26 15:57] VITALS: BP 113/75; PULSE 72
--- NOTE | 2022-08-27 08:38 | MM ---
Electronically signed and approved by: John Stewart, DO
--- NOTE | 2022-09-05 10:03 | MM ---
Prior Study Comparison: 01/02/2022 Bilateral MG 3D diag mammo w/cad RT, [facility]. 01/21/2022 Right MG diagnostic mammo RT wo CAD, [facility]. Pathology Description: Location: upper outer quadrant. Approach: Lateral to Medial Needle Type: 9 cm Kopan BRACKETED WITH 9 KOPAN...X2 The procedure of needle localization with wire placement and than surgical excision was explained to the patient. Benefits, alternatives, and risks were discussed. An informed consent was then obtained. The shortest pathway for procedure was chosen. Shortest pathway was lateral approach. The overlying skin was prepped and draped in usual sterile fashion. Lidocaine was used as anesthetic into the skin and subcutaneous tissue up to the level of area of concern. A 9.0 cm needle was used to zulay the anterior margin based on MRI imagining. It was placed via a lateral approach under mammographic guidance and then a second 9.0 cm needle was used to bookend the posterior aspect.. Subsequent 90 degrees mammogram show the needle to be in satisfactory position relative to the targeted area. At this point, wire was placed and the needle was withdrawn. The wire was fixed to patient's skin. Images were marked for surgeon. The patient tolerated the procedure well without any immediate complication. The patient was kept in the radiology department for short stay after the procedure and then taken to surgery for surgical excision. Fibroglandular tissue and wire are identified in specimen mammogram. The patient was kept in hospital for short stay after the procedure and then discharged home in stable condition. Impression: Successful, uncomplicated needle localization with wire placement and surgical excision of suspicious fibroglandular tissue in the right breast, full pathology results to follow. Pathology Results: Result: Malignant, Invasive ductal carcinoma. A. RIGHT BREAST, LUMPECTOMY: Invasive ductal carcinoma with lobular features, Grade 2, with focal high grade ductal carcinoma in situ (DCIS) status post neoadjuvant therapy. See surgical pathology cancer case summary and comment. All margins examined negative for in situ or invasive carcinoma. Invasive carcinoma very close to and less than 1 mm from medial, posterior, and inferior margins. DCIS very close to and less than 1 mm from inferior margin. B. SENTINEL LYMPH NODE, RIGHT, DISSECTION: One sentinel lymph node positive for micrometastatic carcinoma. CK7 and TUAN stains with appropriate controls on block B1 both positive within microcarcinoma in block B1. CK7 and TUAN stains with appropriate controls on block B2 positive for rare tumor cells in block B2 (same node represented in B1 with micrometastatic carcinoma). C. BREAST TISSUE, NEW SUPERIOR MARGIN, EXCISION: Negative for diagnostic in situ or invasive carcinoma and new superior margin benign. D. BREAST TISSUE, NEW INFERIOR MARGIN, EXCISION: Focal residual invasive ductal carcinoma with lobular features with invasive carcinoma focally present at new inferior margin (see comment). E. BREAST TISSUE, NEW MEDIAL MARGIN, EXCISION: Focal residual invasive ductal carcinoma with lobular features present very close to and less than 1 mm from new medial margin (see comment below). New medial margin negative with no tumor at inked surface. F. BREAST TISSUE, NEW LATERAL MARGIN, EXCISION: Negative for diagnostic in situ or invasive carcinoma and new lateral margin benign. Overall Assessment: Malignant Management: Diagnostic Mammogram of the right breast in 6 months. Electronically signed and approved by: John Stewart DO
== END 2022-08-26 16:40 | disposition home or self-care (01) ==
LOC: OR 09:25
PROVIDERS: ATTEND Surgery
DX: C50.911 Malignant neoplasm of unspecified site of right female breast (principal)
CPT/HCPCS: 19303; 38900; 38525; 88342; 88307; 88341; 76098; 19281; 76641; 38792; C1819; A9520; J2250; J0330; J1100; J2405; J0690; J2001 ×2; J3010; J1170; J2370; J2704; J1644

== ENCOUNTER → 2022-09-08 | Outpatient (CLI) | payer BC ==
--- NOTE | 2022-09-08 13:27 | P.PN ---
Progress Note - Text Progress Note Date: 09/08/22 Ifrah is a 47 -year-old white female status post right breast lumpectomy and sentinel node biopsy on [id number]. Pathology revealed new inferior margin with a 1 mm area of invasive cancer at the margin. All other margins were negative. The patient's nose status revealed 1 sentinel lymph node positive for micrometastatic disease. The patient tolerated the procedure without difficulty. Examination: Incision: Clean and dry Lungs: Clear Impression: Positive disease 1 mm lesion at inferior margin Reexcision of inferior margin Positive micrometastatic disease in sentinel lymph node removal of sutures CC: Dr. Eric Lou
[2022-09-08 13:46] VITALS: BP 140/84; PULSE 82; RESP 16; TEMP 98.4
== END ==
LOC: WWCWWP 12:30
PROVIDERS: ATTEND Surgery
DX: Z90.11 Acquired absence of right breast and nipple (principal); D05.11 Intraductal carcinoma in situ of right breast; J98.4 Other disorders of lung; Z91.048 Other nonmedicinal substance allergy status

== ENCOUNTER 2022-09-25 12:38 | Day surgery (SDC) | payer BC ==
[2022-09-23 12:13] VITALS: BMI 28.5
--- NOTE | 2022-09-25 12:30 | P.GSHP ---
History of Present Illness H&P Date: 09/25/22 Chief Complaint: right breast cancer 47-year-old female with history of right-sided breast cancer. Had Port-A-Cath placed earlier this year. Here today for Port-A-Cath removal. No issues with port. Past Medical History Past Medical History: Cancer, GERD/Reflux, Hypertension, Thyroid Disorder Additional Past Medical History / Comment(s): RIGHT BREAST CANCER-LAST CHEMO WAS 07/25/22- TO HAVE RADIATION AT LATER DATE. Hypothyroid.. History of Any Multi-Drug Resistant Organisms: None Reported Past Surgical History: Breast Surgery, Hysterectomy, Tonsillectomy Additional Past Surgical History / Comment(s): RIGHT BREAST US BX 01/21/22. Right Breast incisional breast biopsy 1989??. Right wrist cyst removal. RT BREAST LUMPECTOMY 08/26/22, PORT A CATH INSERTION Past Anesthesia/Blood Transfusion Reactions: No Reported Reaction, Motion Sickness Smoking Status: Former smoker - Past Family History Mother Family Medical History: No Reported History Medications and Allergies Home Medications Medication Instructions Recorded Confirmed Type Metoprolol Succinate [Toprol XL] 50 mg PO BID 01/08/22 09/23/22 History Thyroid,Pork [[place] Thyroid] 90 mg PO QAM 01/08/22 09/23/22 History hydrALAZINE HCL 75 mg PO TID 01/08/22 09/23/22 History Multivitamins, Thera [Multivitamin 1 tab PO DAILY 04/07/22 09/23/22 History (formulary)] Omeprazole Magnesium [PriLOSEC OTC] 20 mg PO QAM PRN 04/07/22 09/23/22 History valACYclovir HCL [Valacyclovir] 1 gm PO DAILY PRN 04/07/22 09/23/22 History Allergies Allergy/AdvReac Type Severity Reaction Status Date / Time adhesive AdvReac Rash/Hives Verified 09/23/22 12:05 Surgical - Exam Physical exam: General: Well-developed, well-nourished HEENT: Normocephalic, sclerae nonicteric Abdomen: Nontender, nondistended Extremities: No edema Neuro: Alert and oriented Assessment and Plan (1) Breast cancer, right Narrative/Plan: Will proceed with Port-A-Cath removal at this time. Status: Acute Code(s): C50.911 - MALIGNANT NEOPLASM OF UNSP SITE OF RIGHT FEMALE BREAST SNOMED Code(s): 556320055
[~2022-09-25 12:38] MED LIST changes: +ACETAMINOPHEN TAB 500 MG TAB PO PRN; -LIDOCAINE 1% (10MG/ML) FOR IV START INTRADERMA PRN; -MIDAZOLAM 2 MG/2 ML VIAL IV PRN; -Pre Op ABX Message 1 EACH MISC MISCELLANE ONE
[2022-09-25 13:13] VITALS: TEMP 97
[2022-09-25] MEDS ORDERED: LIDOCAINE 1% INJ 10MG/ML (20 ML MDV) SQ ONE ×2 (13:29→13:53)
[2022-09-25] MEDS ORDERED: PHENYLEPHRINE-0.9% NACL SYG 1,000 MCG/10 ML SYRINGE ONE (13:31)
[2022-09-25] MEDS ORDERED: MIDAZOLAM 2 MG/2 ML VIAL ONE (13:31)
[2022-09-25] MEDS ORDERED: fentaNYL (PF) 50 MCG/ML 2 ML AMP ONE (13:31)
[2022-09-25] MEDS ORDERED: KETOROLAC 15 MG/ML 1 ML VIAL ONE (13:31)
[2022-09-25] MEDS ORDERED: PROPOFOL 10 MG/ML 20 ML VIAL IV ONE (13:31)
[2022-09-25] MEDS ORDERED: ACETAMINOPHEN TAB 325 MG TAB PO PRN (14:09)
[2022-09-25] MEDS ORDERED: NALOXONE 0.4 MG/ML 1 ML VIAL IV PRN (14:09)
--- NOTE | 2022-09-25 14:09 | P.OP ---
Date of Procedure: 09/25/22 Procedure(s) Performed: PREOPERATIVE DIAGNOSIS: Right breast cancer POSTOPERATIVE DIAGNOSIS: Same PROCEDURE: Port-A-Cath removal SURGEON: Serafin EBL: Minimal ANESTHESIA: Sedation COMPLICATIONS: None OPERATIVE PROCEDURE: Patient was placed in the supine position. The patient was sedated per anesthesia that time. The chest was prepped and draped in the usual sterile fashion. The skin was localized with Marcaine solution. The previous incision was re-incised using a scalpel. The port was easily excised using accommodation of blunt dissection sharp dissection and electrocautery. The subcutaneous tissues were reapproximated using 3-0 Vicryl sutures. The skin was reapproximated using 4-0 Monocryl sutures. Skin glue was then applied. DISPOSITION: Stable to recovery room
[2022-09-25 14:48] VITALS: BP 105/77; PULSE 62; RESP 20
== END 2022-09-25 14:58 | disposition home or self-care (01) ==
LOC: OR 12:38
PROVIDERS: ATTEND Surgery
DX: C50.911 Malignant neoplasm of unspecified site of right female breast (principal); K21.9 Gastro-esophageal reflux disease without esophagitis; I10 Essential (primary) hypertension; E03.9 Hypothyroidism, unspecified; Z90.710 Acquired absence of both cervix and uterus; Z90.89 Acquired absence of other organs; Z98.890 Other specified postprocedural states; Z87.891 Personal history of nicotine dependence; Z85.3 Personal history of malignant neoplasm of breast; Z79.890 Hormone replacement therapy; Z79.899 Other long term (current) drug therapy
CPT/HCPCS: 36590; J2250; J1100; J0690; J2405; J2001; J3010; J1885; J2704; J1644; J2371

== ENCOUNTER → 2022-10-07 | Day surgery (SDC) | payer BC ==
[2022-10-02 13:44] VITALS: BMI 28.1
--- NOTE | 2022-10-03 11:56 | P.PN ---
Subjective Progress Note Date: 10/03/22 Invasive ductal carcinoma with lobular features right breast [id number]+Her2- G2 Malou is a 46-year-old white female seen in consultation for Dr. Reyes regarding a biopsy-proven invasive ductal with lobular features carcinoma of the right breast. She underwent a bilateral mammogram on . This revealed on the right a scar marker and some underlying architectural distortion. This led to additional workup of the right breast including an ultrasound which led to an ultrasound-guided core biopsy on [id number]. On the diagnostic ultrasound she was noted to have in the right breast a 2.3 cm heterogeneous irregular area. On the left breast cyst were identified but no lesions of concern. The biopsy revealed ER/IN positive HER-2/franko negative G2 invasive ductal carcinoma with lobular features. She had a right breast biopsy in the past 1994 which was benign. She had a left breast needle biopsy in the past, about 5 years ago which was benign. She could feel a lesion in her right breast for about 6 months. It did increase in size. It is painful. She is not complaining of any nipple discharge or skin changes. She is not complaining of any recent trauma or infection in the breast. Genetic testing was performed which was negative Metastatic workup including bone scan and CT chest abdomen and pelvis was negative Oncotype was 44 Case was presented at tumor board on 1322. Secondary to high Oncotype score this will be discussed with Dr. Lou for neoadjuvant chemotherapy. Breast MRI was performed which did not reveal any lesions of concern in the left breast, in the right breast heterogeneous enhancement involving the outer half was identified. The AP length of the abnormal enhancement was 11 cm x 5 cm. 06-19-22 The patient received 4 courses of A/C, she will have 4 courses of Taxol she has received 1. This is given every 2 weeks. She believes that the tumor has decreased in size. She is tolerating the chemotherapy but complaining of fatigue. 08-21-22 Ifrah has completed her soco-adjuvant chemotherapy; approximately 4 weeks ago for a [id number]+IN+Her2-G2 invasive ductal carcinoma with lobular features of the right breast. She feels the tumor has decreased in size. Breast MRI performed on 6122. This revealed partial positive treatment response to no malignancy in the right breast the lesion has decreased from 11 cm to 2.1 x 0.9 cm. None mass enhancement is approximately 1.9 x 1.4 cm. No new areas of pathologic enhancement in the right breast are identified. No lesions of concern are noted in the left breast No pathologic adenopathy was noted 10-03-22 The patient on underwent a right breast lumpectomy and sentinel node biopsy. Pathology revealed a grade 2 invasive ductal carcinoma with lobular features. Tumor size was 14 mm. On a new inferior margin there was noted be focal residual invasive ductal carcinoma. All other margins were negative. The patient had a sentinel node removed on the right which was positive for micrometastatic disease. The patient postoperatively was doing well. Secondary to the fact there was a positive inferior margin it is recommended that reexcision of the inferior margin be performed. Caffiene: 2 cups/day nicotine: stopped 6 years ago; used to smoke 1 PPD for 20 years chocolate: occasional Family History: paternal grandmother breast cancer 40 paternal cousin: breast cancer 56 Hormonal History: menarche: 10 M2 partial hysterectomy abnormal cells at 38; they left her ovaries hormones: none BCP: none Surgical History: Partial hysterectomy did not take ovaries Tonsillectomy Cyst removed right breast cyst removed right wrist Medical History: HTN hypothyroid double vision Social HIstory: nicotine: as above alcohol: none drugs: none - Constitutional Constitutional: Denies chills, Denies fever - EENT Eyes: denies blurred vision, denies pain Ears: deny: decreased hearing, tinnitus Ears, nose, mouth and throat: Denies headache, Denies sore throat - Breasts Breasts: bilateral: as per HPI - Cardiovascular Cardiovascular: Denies chest pain, Denies shortness of breath - Respiratory Respiratory: Denies cough - Gastrointestinal Gastrointestinal: Denies abdominal pain, Denies diarrhea, Denies nausea, Denies vomiting - Genitourinary (Female) Genitourinary: Denies dysuria, Denies hematuria - Menstruation Menstruation: Reports post hysterectomy - Musculoskeletal Musculoskeletal: Denies myalgias - Integumentary Integumentary: Denies pruritus, Denies rash - Neurological Neurological: Denies numbness, Denies weakness - Psychiatric Psychiatric: Denies anxiety, Denies depression - Endocrine Comment: hypothyroid Endocrine: Denies fatigue, Denies weight change - Hematologic/Lymphatic Comment: none - Allergic/Immunologic Allergic/Immunologic: Reports as per HPI Past Medical History Past Medical History: Hypertension, Thyroid Disorder Additional Past Medical History / Comment(s): Hypothyroid.. History of Any Multi-Drug Resistant Organisms: None Reported Past Surgical History: Hysterectomy, Tonsillectomy Additional Past Surgical History / Comment(s): Right Breast incisional breast biopsy 1989??. Right wrist cyst removal. Past Anesthesia/Blood Transfusion Reactions: No Reported Reaction Past Psychological History: No Psychological Hx Reported Smoking Status: Former smoker Past Alcohol Use History: None Reported Additional Past Alcohol Use History / Comment(s): quit smoling 10 years ago Past Drug Use History: None Reported Medications and Allergies Home Medications Medication Instructions Recorded Confirmed Type Metoprolol Succinate [Toprol XL] 50 mg PO DAILY 01/08/22 02/12/22 History Thyroid,Pork [[place] Thyroid] 90 mg PO DAILY 01/08/22 02/12/22 History hydrALAZINE HCL 75 mg PO DAILY 01/08/22 02/12/22 History Allergies Allergy/AdvReac Type Severity Reaction Status Date / Time No Known Allergies Allergy Verified 02/12/22 10:54 Objective - Vital Signs Vital signs: Intake & Output 10/02/22 10/03/22 10/03/22 18:59 06:59 18:59 Weight 69.853 kg - Constitutional General appearance: Present: cooperative - EENT Eyes: Present: edentulous ENT: Present: hearing grossly normal - Neck Neck: Present: normal ROM - Respiratory Respiratory: bilateral: CTA - Cardiovascular Heart sounds: normal: S1, S2 - Gastrointestinal General gastrointestinal: Present: soft - Integumentary Integumentary: Present: normal turgor - Musculoskeletal Musculoskeletal: Present: gait normal - Psychiatric Psychiatric: Present: A&O x's 3, appropriate affect, intact judgment & insight - Additional findings Additional findings: Breast Exam: BRA: 38D inspection: Bilateral grade 2/3 ptosis, right breast larger than left breast Palpation: Right breast: Multiple positional exam fibrocystic changes, incision clean and dry no evidence of infection Right axilla: Incision clean and dry Left breast: Multi-positional exam fibrocystic changes no discrete dominant masses or nodules of concern Left axilla: No adenopathy of concern Assessment and Plan Assessment: Impression: Impression: Right breast: Invasive ductal carcinoma with lobular features positive inferior margin, 1 sentinel lymph node positive for micrometastatic disease from 13391 Metastatic workup negative Genetic testing negative Oncotype 44 Plan: Reexcision of inferior margin, possible onco-plastic tissue transfer Risks and benefits of the procedure were discussed with the patient. Risks include but are not limited to bleeding, infection, reaction to the anesthetic. If the margin would be positive again and further excision would be recommended. CC: Dr. Reyes
[~2022-10-07] MED LIST changes: -ACETAMINOPHEN TAB 500 MG TAB PO PRN; -HYDROmorphone 0.5 MG/0.5 ML SYRINGE IVP PRN; +LACTATED RINGERS 1,000 ML IV ONE; +LIDOCAINE 1% (10MG/ML) FOR IV START INTRADERMA ONE; +LIDOCAINE 2% INJ 20 MG/ML (2 ML VIAL) ONE; +MIDAZOLAM 2 MG/2 ML VIAL IVP ONE; +MIDAZOLAM 2 MG/2 ML VIAL ONE; +PHENYLEPHRINE-0.9% NACL SYG 1,000 MCG/10 ML SYRINGE ONE; +PROPOFOL 10 MG/ML 20 ML VIAL IV ONE; +Pre Op ABX Message 1 EACH MISC MISCELLANE ONE; +SCOPOLAMINE 1 MG/72 HR PATCH TRANSDERM ONE; +SODIUM CHLORIDE 0.9% 100 ML BAG ONE; +SODIUM CHLORIDE 0.9% 50 ML with ceFAZolin 2,000 MG IV ONE; +SUCCINYLCHOLINE CHLORIDE 200 MG/10 ML VIAL IV ONE; +ceFAZolin 1,000 MG VIAL ONE; +fentaNYL (PF) 50 MCG/ML 2 ML AMP ONE
--- NOTE | 2022-10-07 08:38 | P.NAPBC ---
NAP Queries - [facility] Queries Was patient's case review presented at [facility] tumor board? If no, comment.: Yes (initally presented prior to resection ) Was patient's pathology reviewed at [facility]? If no, comment.: Yes Was breast conservation surgery offered? If no, comment.: Yes Was sentinel node biopsy offered? If no, comment.: No (already done) Was diagnosis confirmed by percutaneous core biopsy? If no, comment.: Yes Is patient mastectomy patient?: No Was a preop referral to reconstructive surgeon offered?: No [facility] Comments: re-excision of inferior margin Clinical Stage: T3N(+microscopic disease)M0ER+Pr+Her2-G2 + inferior margin from lumpectomy 08-26-22
--- NOTE | 2022-10-07 09:46 | P.OP ---
Date of Procedure: 10/07/22 Preoperative Diagnosis: Positive inferior margin prior lumpectomy right breast for invasive ductal carcinoma, close medial margin Postoperative Diagnosis: same Procedure(s) Performed: re-excision lumpectomy Anesthesia: CURTIS Surgeon: Dianna Comer Estimated Blood Loss (ml): 15 IV fluids (ml): 400 Pathology: other (Lumpectomy margin inferior and medial) Condition: stable Disposition: same day Indications for Procedure: Lumpectomy for invasive ductal carcinoma with positive inferior margin and close medial margin Operative Findings: Surgical cavity identified and opened Description of Procedure: The patient was taken to the operating room and following induction of anesthesia the right breast was prepped and draped in a sterile fashion. The prior lumpectomy incision was opened. Dissection was performed down to the prior lumpectomy cavity. This was exposed. The the inferior wall was grasped using Allis clamps. This was reexcised using the Bovie and harmonic scalpel. The margin was likewise grasped using Allis clamps which was reexcised using the Bovie and harmonic scalpel. After assured that hemostasis was attained the wound was well irrigated. Surgicel and pyriform was placed. The deep tissues were reapproximated using 3-0 Vicryl suture. Subcutaneous tissue was closed using 3-0 Vicryl suture. The skin was closed using 4-0 Monocryl. Steri-Strips were applied. The patient tolerated procedure in stable condition. All instrument and sponge counts were correct at the end of the case.
[2022-10-07 10:07] VITALS: TEMP 96.8
[2022-10-07] MEDS: HYDROmorphone 0.5 MG/0.5 ML SYRINGE IVP PRN ×4 (10:11→10:42)
[2022-10-07 11:35] VITALS: RESP 14
[2022-10-07 11:44] VITALS: BP 100/68; PULSE 76
== END | disposition home or self-care (01) ==
LOC: OR 07:15
PROVIDERS: ATTEND Surgery
DX: C79.81 Secondary malignant neoplasm of breast (principal); Z87.891 Personal history of nicotine dependence; F10.21 Alcohol dependence, in remission
CPT/HCPCS: 19301; 88307; J2250; J0330; J1100; J2405; J0690; J3010; J2704; J1170; J1644; J2001; J2371

== ENCOUNTER → 2022-10-10 | Outpatient (CLI) | payer BC ==
--- NOTE | 2022-10-10 15:43 | P.PN ---
Progress Note - Text Progress Note Date: 10/10/22 Ifrah is a 47 -year-old white female status post [place] [id number]. Pathology revealed new inferior margin with a 1 mm area of invasive cancer at the margin. All other margins were negative. The patient's nose status revealed 1 sentinel lymph node positive for micrometastatic disease. The patient tolerated the procedure without difficulty. The patient underwent re-excision of the inferior and medical margin on 10-07-22. The new margins were (-) for cancer. She tolerated the surgery without difficulty. Examination: Incision: Clean and dry Lungs: Clear Impression: follow up in 4 months follow up radiation oncology follow up medical oncology CC: Dr. Eric Lou
== END ==
LOC: WWCWWP 15:18
PROVIDERS: ATTEND Surgery
DX: Z04.89 Encounter for examination and observation for other specified reasons (principal); Z98.890 Other specified postprocedural states; Z91.048 Other nonmedicinal substance allergy status

== ENCOUNTER → 2023-01-19 | Outpatient (CLI) | payer BC ==
--- NOTE | 2023-01-19 13:23 | BD ---
EXAMINATION TYPE: Axial Bone Density DATE OF EXAM: 01/19/2023 CLINICAL HISTORY: 47 years old Female. ICD-10 CODE: C50.411 BR CA Height: 61.2 Weight: 156 FRAX RISK QUESTIONS: nothing to note here RISK FACTORS HISTORY OF: Diet low in dairy products/other sources of calcium: yes Postmenopausal woman: yes, at age 46 yrs old Hyperparathyroidism: no Adrenal Insufficiency: no MEDICATIONS: Thyroid Medications: armor thyroid, synthroid 20+ yrs Additional Medications: bp meds, hx of chemo and radiation with lumpectomy, rt breast July 2022, refl ux meds, vit d and calcium, Additional History: hx of right breast cancer, July 2022, chemo and radiation both, lumpectomy, refl ux, thyroid, hypertension, EXAM MEASUREMENTS: Bone mineral densitometry was performed using the [employer] System. Bone mineral density as measured about the Lumbar spine is: ----- L1-L4(G/cm2): 1.113 T Score Values are as follows: ----- L1: -0.1 ----- L2: -0.8 ----- L3: -1.0 ----- L4: -0.4 ----- L1-L4: -0.6 Z Score Values are as follows: ----- L1: 0.1 ----- L2: -0.6 ----- L3: -0.8 ----- L4: -0.2 ----- L1-L4: -0.4 Bone mineral density is a baseline study for her today. Bone mineral density about the R hip (g/cm2): 0.875 Bone mineral density about the L hip (g/cm2): 0.956 T Score values are as follows: -----R Neck: -1.8 -----L Neck: -1.3 -----R Total: -1.1 -----L Total: -0.4 Z Score values are as follows: -----R Neck: -1.2 -----L Neck: -0.6 -----R Total: -0.7 -----L Total: -0.1 Bone mineral density is a baseline study today. FRAX%s: The graph provided illustrates a 4.9% chance for a major osteoporotic fx and a 0.6% chance fo r the hips probability for fx in 10 years time. IMPRESSION: Osteopenia (T Score between -2.5 and -1). There is slightly increased risk of fracture and the patient may be considered for treatment. Re-Screen 2-5 years. NOTE: T-SCORE=SD OF THE YOUNG ADULT MEAN.
== END | disposition home or self-care (01) ==
LOC: RADBDWWP 12:33
PROVIDERS: ATTEND Internal Medicine
DX: C50.411 Malignant neoplasm of upper-outer quadrant of right female breast (principal); M85.89 Other specified disorders of bone density and structure, multiple sites; Z71.3 Dietary counseling and surveillance; Z85.3 Personal history of malignant neoplasm of breast; Z78.0 Asymptomatic menopausal state
CPT/HCPCS: 77080

== ENCOUNTER → 2023-03-05 | Outpatient (CLI) | payer BC ==
[2023-03-05 15:00] VITALS: BP 135/95; PULSE 64; RESP 17; TEMP 97.8
--- NOTE | 2023-03-05 15:02 | P.PN ---
Subjective Progress Note Date: 03/05/23 Principal diagnosis: invasive lobular cancer left breast [id number]+Pr+Her2-G2 invasive lobular cancer left breast [id number]+Pr+Her2-G2 Malou is a 46-year-old white female seen in consultation for Dr. Reyes regarding a biopsy-proven invasive ductal carcinoma of the right breast. She underwent a bilateral mammogram on . This revealed on the right a scar marker and some underlying architectural distortion. This led to additional workup of the right breast including an ultrasound which led to an ultrasound- guided core biopsy on [id number]. On the diagnostic ultrasound she was noted to have in the right breast a 2.3 cm heterogeneous irregular area. On the left breast cyst were identified but no lesions of concern. The biopsy revealed ER/MS positive HER-2/franko negative G2 invasive ductal carcinoma with lobular features. She had a right breast biopsy in the past 1994 which was benign. She had a left breast needle biopsy in the past, about 5 years ago which was benign. She could feel a lesion in her right breast for about 6 months. It did increase in size. It is painful. She is not complaining of any nipple discharge or skin changes. She is not complaining of any recent trauma or infection in the breast. Genetic testing was performed which was negative Metastatic workup including bone scan and CT chest abdomen and pelvis was negative Oncotype was 44 Case was presented at tumor board on 1322. Secondary to high Oncotype score this will be discussed with Dr. Lou for neoadjuvant chemotherapy. Breast MRI was performed which did not reveal any lesions of concern in the left breast, in the right breast heterogeneous enhancement involving the outer half was identified. The AP length of the abnormal enhancement was 11 cm x 5 cm. 06-19-22 The patient received 4 courses of A/C, she will have 4 courses of Taxol she has received 1. This is given every 2 weeks. She believes that the tumor has decreased in size. She is tolerating the chemotherapy but complaining of fatigue. 08-21-22 Ifrah has completed her soco-adjuvant chemotherapy; approximately 4 weeks ago for a [id number]+MS+Her2-G2 invasive lobular cancer of the right breast. She feels the tumor has decreased in size. Breast MRI performed on 6122. This revealed partial positive treatment response to no malignancy in the right breast the lesion has decreased from 11 cm to 2.1 x 0.9 cm. None mass enhancement is approximately 1.9 x 1.4 cm. No new areas of path logic enhancement in the right breast are identified. No lesions of concern are noted in the left breast No pathologic adenopathy was noted 03-05-23 right breast invasive ductal cancer lobular features; [id number]+Pr+Her2- intermediate grade oncotype of 44. He underwent neoadjuvant chemotherapy followed by lumpectomy with sentinel node sampling revealing a stage IA disease. The patient had reexcision due to positive margins and repeat margins were negative. She underwent radiation to the breast and regional nodes followed by a boost finishing radiation on . She is now on anastrozole. Radiation oncology note [id number] reviewed Medical oncology note [id number] reviewed Caffiene: 2 cups/day nicotine: stopped 6 years ago; used to smoke 1 PPD for 20 years chocolate: occasional Family History: paternal grandmother breast cancer 40 paternal cousin: breast cancer 56 Hormonal History: menarche: 10 M2 partial hysterectomy abnormal cells at 38; they left her ovaries hormones: none BCP: none Surgical History: Partial hysterectomy did not take ovaries Tonsillectomy Cyst removed right breast cyst removed right wrist right breast lumpectomy and SNB Medical History: HTN hypothyroid double vision Social HIstory: nicotine: as above alcohol: none drugs: none - Constitutional Constitutional: Denies chills, Denies fever - EENT Eyes: denies blurred vision, denies pain Ears: deny: decreased hearing, tinnitus Ears, nose, mouth and throat: Denies headache, Denies sore throat - Breasts Breasts: bilateral: as per HPI - Cardiovascular Cardiovascular: Denies chest pain, Denies shortness of breath - Respiratory Respiratory: Denies cough - Gastrointestinal Gastrointestinal: Denies abdominal pain, Denies diarrhea, Denies nausea, Denies vomiting - Genitourinary (Female) Genitourinary: Denies dysuria, Denies hematuria - Menstruation Menstruation: Reports post hysterectomy - Musculoskeletal Musculoskeletal: Denies myalgias - Integumentary Integumentary: Denies pruritus, Denies rash - Neurological Neurological: Denies numbness, Denies weakness - Psychiatric Psychiatric: Denies anxiety, Denies depression - Endocrine Comment: hypothyroid Endocrine: Denies fatigue, Denies weight change - Hematologic/Lymphatic Comment: none - Allergic/Immunologic Allergic/Immunologic: Reports as per HPI Past Medical History Past Medical History: Hypertension, Thyroid Disorder Additional Past Medical History / Comment(s): Hypothyroid.. History of Any Multi-Drug Resistant Organisms: None Reported Past Surgical History: Hysterectomy, Tonsillectomy Additional Past Surgical History / Comment(s): Right Breast incisional breast biopsy 1989??. Right wrist cyst removal. Past Anesthesia/Blood Transfusion Reactions: No Reported Reaction Past Psychological History: No Psychological Hx Reported Smoking Status: Former smoker Past Alcohol Use History: None Reported Additional Past Alcohol Use History / Comment(s): quit smoling 10 years ago Past Drug Use History: None Reported Medications and Allergies Home Medications Medication Instructions Recorded Confirmed Type Metoprolol Succinate [Toprol XL] 50 mg PO DAILY 01/08/22 02/12/22 History Thyroid,Pork [[place] Thyroid] 90 mg PO DAILY 01/08/22 02/12/22 History hydrALAZINE HCL 75 mg PO DAILY 01/08/22 02/12/22 History Allergies Allergy/AdvReac Type Severity Reaction Status Date / Time No Known Allergies Allergy Verified 02/12/22 10:54 Objective - Vital Signs Vital signs: Intake & Output 03/04/23 03/05/23 03/05/23 18:59 06:59 18:59 Weight 71.214 kg - Constitutional General appearance: Present: cooperative - EENT Eyes: Present: EOMI ENT: Present: hearing grossly normal - Neck Neck: Present: normal ROM - Respiratory Respiratory: bilateral: CTA - Cardiovascular Rhythm: regular - Integumentary Integumentary: Present: normal turgor - Musculoskeletal Musculoskeletal: Present: gait normal - Psychiatric Psychiatric: Present: A&O x's 3, appropriate affect, intact judgment & insight - Additional findings Additional findings: Breast Exam: BRA: 38D Inspection: Bilateral grade 2 ptosis Right breast slightly smaller than left breast, well-healed scar from prior surgery Palpation: Right breast: Multi-positional exam no dominant masses or nodules of concern. Postsurgical and radiation changes Right axilla: No adenopathy of concern Left breast: Multi-positional exam no dominant masses or nodules of concern Left axilla: No adenopathy of concern Assessment and Plan Assessment: Impression: Patient doing well status post right breast lumpectomy and radiation therapy Patient status post neoadjuvant chemotherapy Patient presently on anastrozole Plan: Continue to follow with medical oncology Continue to follow with radiation oncology Bilateral mammogram in 4 months with examination here at that time CC: DR. Reyes
== END ==
LOC: WWCWWP 14:33
PROVIDERS: ATTEND Surgery
DX: C50.912 Malignant neoplasm of unspecified site of left female breast (principal); N60.02 Solitary cyst of left breast; I10 Essential (primary) hypertension; E03.9 Hypothyroidism, unspecified; Z90.710 Acquired absence of both cervix and uterus; Z51.11 Encounter for antineoplastic chemotherapy; Z79.890 Hormone replacement therapy; Z98.890 Other specified postprocedural states; Z87.891 Personal history of nicotine dependence; Z17.0 Estrogen receptor positive status [ER+]; Z80.3 Family history of malignant neoplasm of breast; Z92.3 Personal history of irradiation; Z91.048 Other nonmedicinal substance allergy status; Z79.899 Other long term (current) drug therapy

== ENCOUNTER → 2023-07-07 | Outpatient (CLI) | payer BC ==
--- NOTE | 2023-07-07 11:24 | MM ---
Reason for Exam: Hx of breast cancer, conservation therapy. Patient History: Menarche at age 10. Hysterectomy at age 38. Postmenopausal. Breast cancer, right, age 46. Breast cancer, right, age 47. 08/26/2022, Lumpectomy on the Right side. 08/26/2022, Malignant MG pre op needle loc RT on the right side. 01/21/2022, Malignant US biopsy breast VAD RT on the right side. 08/26/2022, US discontinued breast loc RT on the right side. Paternal grandmother had breast cancer, age 40. Prior Study Comparison: 01/02/2022 Bilateral US breast limited BILAT, [facility]. 01/02/2022 Bilateral MG 3D diag mammo w/cad RT, [facility]. 01/21/2022 Right MG diagnostic mammo RT wo CAD, [facility]. 03/01/2022 Bilateral MR breast bilat wo/w con, [facility]. 07/31/2022 Bilateral MR breast bilat wo/w con, [facility]. Tissue Density: The breasts are heterogeneously dense, which may obscure small masses. Findings: Analyzed By CAD. Recent postsurgical and posttreatment changes right breast. Microclip lateral left breast from biopsy. Upper-outer quadrant asymmetry is redemonstrated. Some regional punctate calcifications near become less pronounced on magnification views but appear to be slightly increased. Short interval follow-up recommended. Otherwise, areas of asymmetric density are unchanged. Overall Assessment: Probably benign, BI-RAD 3 Management: Diagnostic Mammogram of both breasts in 6 months. Follow-up right to assess for any evolving posttreatment change. Follow-up left to reassess the upper outer quadrant calcifications. Results were given to the patient verbally at the time of exam. Patient should continue monthly self-breast exams. A clinical breast exam by your physician is recommended on an annual basis. This exam should not preclude additional follow-up of suspicious palpable abnormalities. Electronically signed and approved by: Aisha Moreno M.D. Radiologist
== END | disposition home or self-care (01) ==
LOC: RADMAMWWP 10:29
PROVIDERS: ATTEND Surgery
DX: R92.333 Mammographic heterogeneous density, bilateral breasts (principal); Z85.3 Personal history of malignant neoplasm of breast; Z78.0 Asymptomatic menopausal state; Z80.3 Family history of malignant neoplasm of breast
CPT/HCPCS: 77062; 77066

== ENCOUNTER → 2023-07-16 | Outpatient (CLI) | payer BC ==
[2023-07-16 13:10] VITALS: BP 135/88; PULSE 69; RESP 17; TEMP 98.3
--- NOTE | 2023-07-16 13:27 | P.PN ---
Subjective Progress Note Date: 07/16/23 Principal diagnosis: [id number]+Her2-G2 invasive ductal with lobular features cancer of the right breast, 02-06-22 DX. 07-16-23 Principal diagnosis: invasive lobular cancer left breast [id number]+Pr+Her2-G2 03-05-23 invasive lobular cancer left breast [id number]+Pr+Her2-G2 Malou is a 46-year-old white female seen in consultation for Dr. Reyes regarding a biopsy-proven invasive ductal carcinoma of the right breast. She underwent a bilateral mammogram on . This revealed on the right a scar marker and some underlying architectural distortion. This led to additional workup of the right breast including an ultrasound which led to an ultrasound- guided core biopsy on [id number]. On the diagnostic ultrasound she was noted to have in the right breast a 2.3 cm heterogeneous irregular area. On the left breast cyst were identified but no lesions of concern. The biopsy revealed ER/WY positive HER-2/franko negative G2 invasive ductal carcinoma with lobular features. She had a right breast biopsy in the past 1994 which was benign. She had a left breast needle biopsy in the past, about 5 years ago which was benign. She could feel a lesion in her right breast for about 6 months. It did increase in size. It is painful. She is not complaining of any nipple discharge or skin changes. She is not complaining of any recent trauma or infection in the breast. Genetic testing was performed which was negative Metastatic workup including bone scan and CT chest abdomen and pelvis was negative Oncotype was 44 Case was presented at tumor board on 132. Secondary to high Oncotype score this will be discussed with Dr. Lou for neoadjuvant chemotherapy. Breast MRI was performed which did not reveal any lesions of concern in the left breast, in the right breast heterogeneous enhancement involving the outer half was identified. The AP length of the abnormal enhancement was 11 cm x 5 cm. 06-19-22 The patient received 4 courses of A/C, she will have 4 courses of Taxol she has received 1. This is given every 2 weeks. She believes that the tumor has decreased in size. She is tolerating the chemotherapy but complaining of fatigue. 08-21-22 Ifrah has completed her soco-adjuvant chemotherapy; approximately 4 weeks ago for a [id number]+WY+Her2-G2 invasive lobular cancer of the right breast. She feels the tumor has decreased in size. Breast MRI performed on 6122. This revealed partial positive treatment response to no malignancy in the right breast the lesion has decreased from 11 cm to 2.1 x 0.9 cm. None mass enhancement is approximately 1.9 x 1.4 cm. No new areas of path logic enhancement in the right breast are identified. No lesions of concern are noted in the left breast No pathologic adenopathy was noted 03-05-23 right breast invasive ductal cancer lobular features; [id number]+Pr+Her2- intermediate grade oncotype of 44. She underwent neoadjuvant chemotherapy followed by lumpectomy with sentinel node sampling revealing a stage IA disease. The patient had reexcision due to positive margins and repeat margins were negative. She underwent radiation to the breast and regional nodes followed by a boost finishing radiation on . She is now on anastrozole. Radiation oncology note [id number] reviewed Medical oncology note [id number] reviewed 07-16-23 right breast invasive ductal cancer lobular features; [id number]+Pr+Her2- intermediate grade oncotype of 44. She underwent neoadjuvant chemotherapy followed by lumpectomy with sentinel node sampling revealing a stage IA disease. The patient had reexcision due to positive margins and repeat margins were negative. She underwent radiation to the breast and regional nodes followed by a boost finishing radiation on . She is now on anastrozole. Bilateral mammogram on 07-07-23 BIRAD 3; repeat bilateral mammogram in 6 months Masses or nodules of concern in either breast. Caffiene: 2 cups/day nicotine: stopped 6 years ago; used to smoke 1 PPD for 20 years chocolate: occasional Family History: paternal grandmother breast cancer 40 paternal cousin: breast cancer 56 Hormonal History: menarche: 10 M2 partial hysterectomy abnormal cells at 38; they left her ovaries hormones: none BCP: none Surgical History: Partial hysterectomy did not take ovaries Tonsillectomy Cyst removed right breast cyst removed right wrist right breast lumpectomy and SNB Medical History: HTN hypothyroid double vision Social HIstory: nicotine: as above alcohol: none drugs: none - Constitutional Constitutional: Denies chills, Denies fever - EENT Eyes: denies blurred vision, denies pain Ears: deny: decreased hearing, tinnitus Ears, nose, mouth and throat: Denies headache, Denies sore throat - Breasts Breasts: bilateral: as per HPI - Cardiovascular Cardiovascular: Denies chest pain, Denies shortness of breath - Respiratory Respiratory: Denies cough - Gastrointestinal Gastrointestinal: Denies abdominal pain, Denies diarrhea, Denies nausea, Denies vomiting - Genitourinary (Female) Genitourinary: Denies dysuria, Denies hematuria - Menstruation Menstruation: Reports post hysterectomy - Musculoskeletal Musculoskeletal: Denies myalgias - Integumentary Integumentary: Denies pruritus, Denies rash - Neurological Neurological: Denies numbness, Denies weakness - Psychiatric Psychiatric: Denies anxiety, Denies depression - Endocrine Comment: hypothyroid Endocrine: Denies fatigue, Denies weight change - Hematologic/Lymphatic Comment: none - Allergic/Immunologic Allergic/Immunologic: Reports as per HPI Past Medical History Past Medical History: Hypertension, Thyroid Disorder Additional Past Medical History / Comment(s): Hypothyroid.. History of Any Multi-Drug Resistant Organisms: None Reported Past Surgical History: Hysterectomy, Tonsillectomy Additional Past Surgical History / Comment(s): Right Breast incisional breast biopsy 1989??. Right wrist cyst removal. Past Anesthesia/Blood Transfusion Reactions: No Reported Reaction Past Psychological History: No Psychological Hx Reported Smoking Status: Former smoker Past Alcohol Use History: None Reported Additional Past Alcohol Use History / Comment(s): quit smoling 10 years ago Past Drug Use History: None Reported Medications and Allergies Home Medications Medication Instructions Recorded Confirmed Type Metoprolol Succinate [Toprol XL] 50 mg PO DAILY 01/08/22 02/12/22 History Thyroid,Pork [[place] Thyroid] 90 mg PO DAILY 01/08/22 02/12/22 History hydrALAZINE HCL 75 mg PO DAILY 01/08/22 02/12/22 History Allergies Allergy/AdvReac Type Severity Reaction Status Date / Time No Known Allergies Allergy Verified 02/12/22 10:54 Objective - Vital Signs Vital signs: Vital Signs Temp 98.3 F 07/16/23 13:07 Pulse 69 07/16/23 13:07 Resp 17 07/16/23 13:07 BP 135/88 07/16/23 13:07 Pulse Ox 96 07/16/23 13:07 FiO2 Intake & Output 07/15/23 07/16/23 07/16/23 18:59 06:59 18:59 Weight 69.853 kg - Constitutional General appearance: Present: cooperative - EENT Eyes: Present: EOMI ENT: Present: hearing grossly normal - Neck Neck: Present: normal ROM - Respiratory Respiratory: bilateral: CTA - Cardiovascular Heart sounds: normal: S1, S2 - Integumentary Integumentary: Present: normal turgor - Musculoskeletal Musculoskeletal: Present: gait normal - Psychiatric Psychiatric: Present: A&O x's 3, appropriate affect, intact judgment & insight - Additional findings Additional findings: Breast Exam: BRA: 38D Inspection: Bilateral grade 2 ptosis Right breast slightly smaller than left breast, well-healed scar from prior surgery Palpation: Right breast: Multi-positional exam no dominant masses or nodules of concern. Postsurgical and radiation changes; the patient has some scabbing of the right nipple complex which occurred after the radiation. No lumps masses or nodules are noted at this site Right axilla: No adenopathy of concern Left breast: Multi-positional exam no dominant masses or nodules of concern Left axilla: No adenopathy of concern Assessment and Plan Assessment: Impression: Patient doing well status post right breast lumpectomy and radiation therapy Patient status post neoadjuvant chemotherapy Patient presently on anastrozole bilateral mammogram on 07-07-23 BIRAD 3; repeat bilateral mammogram in 6 months Plan: Continue to follow with medical oncology Continue to follow with radiation oncology Bilateral mammogram in 6 months with examination here at that time Malou is going to use vitamin E at the right nipple areolar site and will follow with radiation oncology, if there is persistent scabbing of this area we may consider a punch biopsy on her next visit CC: DR. Reyes
== END ==
LOC: WWCWWP 12:35
PROVIDERS: ATTEND Surgery
DX: Z90.11 Acquired absence of right breast and nipple (principal); Z92.3 Personal history of irradiation; Z91.048 Other nonmedicinal substance allergy status

== ENCOUNTER → 2024-01-12 | Outpatient (CLI) | payer BC ==
--- NOTE | 2024-01-12 13:39 | MM ---
Reason for Exam: Follow-up at short interval from prior study. Last screening mammogram was performed 6 month(s) ago. Patient History: Menarche at age 10. Patient has no children. Hysterectomy at age 38. Postmenopausal. Breast cancer, right, age 46. Breast cancer, right, age 47. Previous chest radiation therapy at age 47. Previous chemotherapy at age 47. 08/26/2022, Lumpectomy on the Right side. 08/26/2022, Malignant MG pre op needle loc RT on the right side. 01/21/2022, Malignant US biopsy breast VAD RT on the right side. 08/26/2022, US discontinued breast loc RT on the right side. Paternal grandmother had breast cancer, age 40. Prior Study Comparison: 01/02/2022 Bilateral US breast limited BILAT, [facility]. 01/02/2022 Bilateral MG 3D diag mammo w/cad RT, [facility]. 01/21/2022 Right MG diagnostic mammo RT wo CAD, [facility]. 03/01/2022 Bilateral MR breast bilat wo/w con, [facility]. 07/31/2022 Bilateral MR breast bilat wo/w con, [facility]. 07/07/2023 Bilateral MG 3D diag mammo w/cad [facility], [facility]. Tissue Density: The breasts are heterogeneously dense, which may obscure small masses. Findings: Analyzed By CAD. The pattern is stable. Right breast: Postsurgical changes are upper outer quadrant. Surgical lumpectomy clips are present. No significant interval change evident. Left breast: There are multiple calcifications in the upper outer quadrant left breast. No suspicious new or clustered microcalcifications identified. Monitoring is recommended in 6 months with magnification views. No suspicious groups of microcalcifications, spiculated or lobular masses, architectural distortion or other secondary signs of malignancy are mammographically apparent. Overall Assessment: Probably benign, BI-RAD 3 Management: Diagnostic Mammogram of both breasts in 6 months. A negative mammogram report should not preclude additional follow up of suspicious palpable abnormalities. Patient should continue monthly self breast exam. A clinical breast exam by your physician is recommended on an annual basis and results should be correlated with mammographic findings. Note on Trinity scores and lifetime risk: 1. A Trinity score greater than 3% is considered moderate risk. If this is the case, consider specialist referral to assess eligibility for a risk reducing agent. 2. If overall lifetime risk for the development of breast cancer is 20% or higher, the patient may qualify for future screening with alternating mammogram and breast MRI. [facility], , 01/12/2024 1:36 PM. Electronically signed and approved by: Tanner West D.O. Radiologis
== END | disposition home or self-care (01) ==
LOC: RADMAMWWP 13:02
PROVIDERS: ATTEND Surgery
DX: Z85.3 Personal history of malignant neoplasm of breast (principal); Z78.0 Asymptomatic menopausal state; Z80.3 Family history of malignant neoplasm of breast; R92.333 Mammographic heterogeneous density, bilateral breasts
CPT/HCPCS: 77062; 77066

== ENCOUNTER → 2024-05-19 | Outpatient (CLI) | payer BC ==
[2024-05-19 08:45] LABS: African American GFR (CKD) >90 (>60 ml/min/1.73 sqM); Blood Urea Nitrogen 18 mg/dL (7-17); Non-African American GFR(CKD) 85 (>60 ml/min/1.73 sqM)
--- NOTE | 2024-05-19 09:51 | CT ---
EXAMINATION TYPE: CT ChestAbdPelvis w con DATE OF EXAM: 05/19/2024 9:00 AM COMPARISON: 03/25/2022. CLINICAL INDICATION: Female, 49 years old with history of C50.411 MALIG NEOPLM OF UPPER-OUTER QUADRAN T OF RI; PHH, BREAST CA Technique: CT ChestAbdPelvis w con; Multiple axial images were obtained. Two-dimensional coronal and sagittal reconstructions were obtained. Contrast used:100 mL of Isovue 300 with IV Contrast, (None if empty) Oral contrast used: without Oral Contrast CT DLP: 767.6 mGycm, Automated exposure control for dose reduction was used. Findings: CHEST: LUNGS/ PLEURA: No focal consolidation, pneumothorax or pleural effusion. AIRWAY: Patent and unremarkable. HEART: Size within normal limits. No significant coronary artery calcifications. MEDIASTINUM: No gross evidence of adenopathy. VASCULATURE: No aortic aneurysm. MUSCULOSKELETAL: No acute osseous abnormalities. SOFT TISSUES/LYMPH NODES: Unremarkable. Interval postsurgical changes to the right breast now with singh rgical clips and suspected postop seroma measuring at least 5.1 x 4.7 x 7.4 cm mild right breast skin thickening compared to prior. LOWER NECK: No significant findings. ABDOMEN: ABDOMEN LIVER: Diffusely hypoattenuating parenchyma. GALLBLADDER AND BILE DUCTS: Unremarkable. PANCREAS: Unremarkable. SPLEEN: Unremarkable. ADRENAL GLANDS: Unremarkable. KIDNEYS AND URETERS: Mild right hydronephrosis secondary obstructing XX mm calculus at the ureterope lvic junction. PELVIS BLADDER: Unremarkable REPRODUCTIVE: Unremarkable. ABDOMEN & PELVIS STOMACH AND BOWEL: No evidence of bowel obstruction. PERITONEUM/RETROPERITONEUM: No evidence of pneumoperitoneum or free fluid. VASCULATURE: No evidence of aortic aneurysm. MUSCULOSKELETAL: No acute osseous abnormalities LYMPH NODES: No gross evidence for lymphadenopathy. SOFT TISSUE/ABDOMINAL WALL: Unremarkable IMPRESSION: 1. Postoperative changes right axilla/right breast with postop seroma present. No evidence for lymph adenopathy or recurrent mass. Mild right breast skin thickening present likely post treatment changes . 2. Hepatic steatosis. 3. Nonobstructing right renal calculus. [facility], , 05/19/2024 9:48 AM
--- NOTE | 2024-05-19 15:25 | NM ---
EXAMINATION TYPE: NM bone scan whole body DATE OF EXAM: 05/19/2024 3:06 PM CLINICAL INDICATION:Female, 49 years old with history of C50.411 MALIG NEOPLM OF UPPER-OUTER QUADRANT OF [place]; COMPARISON: 03/25/2022 TECHNIQUE: Intravenous administration 22 mCi Tc 99m MDP followed by multiple scintigraphic images of the appendicular and axial skeleton. Images acquired 4.5 hours post injection. FINDINGS: No abnormal uptake is identified within the appendicular or axial skeleton to suggest metastatic dise ase. There is increased uptake within the bilateral shoulder, sternoclavicular, and sacroiliac joints con sistent with degenerative changes. No other photopenic areas or areas of increased activity are ident ified. Physiologic radiotracer activity is demonstrated in the kidneys and bladder. IMPRESSION: Nothing to suggest metastatic disease. [facility], , 05/19/2024 3:23 PM
== END | disposition home or self-care (01) ==
LOC: RADCTMAIN 08:06
PROVIDERS: ATTEND Internal Medicine
DX: C50.411 Malignant neoplasm of upper-outer quadrant of right female breast (principal); N20.0 Calculus of kidney; R23.4 Changes in skin texture; K76.0 Fatty (change of) liver, not elsewhere classified; Z71.3 Dietary counseling and surveillance; Z98.890 Other specified postprocedural states
CPT/HCPCS: 82565; 84520; 71260; 74177; 78306; 36415; A9503; Q9967

== ENCOUNTER → 2024-06-09 | Outpatient (CLI) | payer BC ==
[2024-06-09 13:41] VITALS: BP 146/88; PULSE 80; RESP 16; TEMP 97.9
--- NOTE | 2024-06-09 13:57 | P.PN ---
Subjective Progress Note Date: 06/09/24 07/16/23 Principal diagnosis: [id number]+Her2-G2 invasive ductal with lobular features cancer of the right breast, 02-06-22 DX. 07-16-23 Principal diagnosis: invasive lobular cancer left breast [id number]+Pr+Her2-G2 03-05-23 invasive lobular cancer left breast [id number]+Pr+Her2-G2 Malou is a 46-year-old white female seen in consultation for Dr. Reyes regarding a biopsy-proven invasive ductal carcinoma of the right breast. She underwent a bilateral mammogram on . This revealed on the right a scar marker and some underlying architectural distortion. This led to additional workup of the right breast including an ultrasound which led to an ultrasound- guided core biopsy on [id number]. On the diagnostic ultrasound she was noted to have in the right breast a 2.3 cm heterogeneous irregular area. On the left breast cyst were identified but no lesions of concern. The biopsy revealed ER/MI positive HER-2/franko negative G2 invasive ductal carcinoma with lobular features. She had a right breast biopsy in the past 1994 which was benign. She had a left breast needle biopsy in the past, about 5 years ago which was benign. She could feel a lesion in her right breast for about 6 months. It did increase in size. It is painful. She is not complaining of any nipple discharge or skin changes. She is not complaining of any recent trauma or infection in the breast. Genetic testing was performed which was negative Metastatic workup including bone scan and CT chest abdomen and pelvis was negative Oncotype was 44 Case was presented at tumor board on 132. Secondary to high Oncotype score this will be discussed with Dr. Lou for neoadjuvant chemotherapy. Breast MRI was performed which did not reveal any lesions of concern in the left breast, in the right breast heterogeneous enhancement involving the outer half was identified. The AP length of the abnormal enhancement was 11 cm x 5 cm. 06-19-22 The patient received 4 courses of A/C, she will have 4 courses of Taxol she has received 1. This is given every 2 weeks. She believes that the tumor has decreased in size. She is tolerating the chemotherapy but complaining of fatigue. 08-21-22 Ifrah has completed her soco-adjuvant chemotherapy; approximately 4 weeks ago for a [id number]+MI+Her2-G2 invasive lobular cancer of the right breast. She feels the tumor has decreased in size. Breast MRI performed on 6122. This revealed partial positive treatment response to no malignancy in the right breast the lesion has decreased from 11 cm to 2.1 x 0.9 cm. None mass enhancement is approximately 1.9 x 1.4 cm. No new areas of path logic enhancement in the right breast are identified. No lesions of concern are noted in the left breast No pathologic adenopathy was noted 03-05-23 right breast invasive ductal cancer lobular features; [id number]+Pr+Her2- intermediate grade oncotype of 44. She underwent neoadjuvant chemotherapy followed by lumpectomy with sentinel node sampling revealing a stage IA disease. The patient had reexcision due to positive margins and repeat margins were negative. She underwent radiation to the breast and regional nodes followed by a boost finishing radiation on . She is now on anastrozole. Radiation oncology note [id number] reviewed Medical oncology note [id number] reviewed 07-16-23 right breast invasive ductal cancer lobular features; [id number]+Pr+Her2- intermediate grade oncotype of 44. She underwent neoadjuvant chemotherapy followed by lumpectomy with sentinel node sampling revealing a stage IA disease. The patient had reexcision due to positive margins and repeat margins were negative. She underwent radiation to the breast and regional nodes followed by a boost finishing radiation on . She is now on anastrozole. Bilateral mammogram on 07-07-23 BIRAD 3; repeat bilateral mammogram in 6 months Masses or nodules of concern in either breast. 06-09-24 right breast invasive ductal cancer lobular features; [id number]+Pr+Her2- intermediate grade oncotype of 44. She underwent neoadjuvant chemotherapy followed by lumpectomy with sentinel node sampling revealing a stage IA disease. The patient had re-excision due to positive margins and repeat margins were negative. She underwent radiation to the breast and regional nodes followed by a boost finishing radiation on . She is now on anastrozole. Bilateral mammogram on 07-07-23 BIRAD 3; repeat bilateral mammogram in 6 months; repeat bilateral mammogram 01-12-24 BIRAD 3 bilateral mammogram in 6 months No masses or nodules of concern in either breast, but some slight tenderness in the UOQ of hte left breast. She had to reschedule because her mother got sick and . Caffiene: 2 cups/day nicotine: stopped 6 years ago; used to smoke 1 PPD for 20 years chocolate: occasional Family History: paternal grandmother breast cancer 40 paternal cousin: breast cancer 56 Hormonal History: menarche: 10 M2 partial hysterectomy abnormal cells at 38; they left her ovaries hormones: none BCP: none Surgical History: Partial hysterectomy did not take ovaries Tonsillectomy Cyst removed right breast cyst removed right wrist right breast lumpectomy and SNB Medical History: HTN hypothyroid double vision Social HIstory: nicotine: as above alcohol: none drugs: none - Constitutional Constitutional: Denies chills, Denies fever - EENT Eyes: denies blurred vision, denies pain Ears: deny: decreased hearing, tinnitus Ears, nose, mouth and throat: Denies headache, Denies sore throat - Breasts Breasts: bilateral: as per HPI - Cardiovascular Cardiovascular: Denies chest pain, Denies shortness of breath - Respiratory Respiratory: Denies cough - Gastrointestinal Gastrointestinal: Denies abdominal pain, Denies diarrhea, Denies nausea, Denies vomiting - Genitourinary (Female) Genitourinary: Denies dysuria, Denies hematuria - Menstruation Menstruation: Reports post hysterectomy - Musculoskeletal Musculoskeletal: Denies myalgias - Integumentary Integumentary: Denies pruritus, Denies rash - Neurological Neurological: Denies numbness, Denies weakness - Psychiatric Psychiatric: Denies anxiety, Denies depression - Endocrine Comment: hypothyroid Endocrine: Denies fatigue, Denies weight change - Hematologic/Lymphatic Comment: none - Allergic/Immunologic Allergic/Immunologic: Reports as per HPI Past Medical History Past Medical History: Hypertension, Thyroid Disorder Additional Past Medical History / Comment(s): Hypothyroid.. History of Any Multi-Drug Resistant Organisms: None Reported Past Surgical History: Hysterectomy, Tonsillectomy Additional Past Surgical History / Comment(s): Right Breast incisional breast biopsy 1989??. Right wrist cyst removal. Past Anesthesia/Blood Transfusion Reactions: No Reported Reaction Past Psychological History: No Psychological Hx Reported Smoking Status: Former smoker Past Alcohol Use History: None Reported Additional Past Alcohol Use History / Comment(s): quit smoling 10 years ago Past Drug Use History: None Reported Medications and Allergies Home Medications Medication Instructions Recorded Confirmed Type Metoprolol Succinate [Toprol XL] 50 mg PO DAILY 01/08/22 02/12/22 History Thyroid,Pork [[place] Thyroid] 90 mg PO DAILY 01/08/22 02/12/22 History hydrALAZINE HCL 75 mg PO DAILY 01/08/22 02/12/22 History Allergies Allergy/AdvReac Type Severity Reaction Status Date / Time No Known Allergies Allergy Verified 02/12/22 10:54 Objective - Vital Signs Vital signs: Vital Signs Temp 97.9 F 06/09/24 13:39 Pulse 80 06/09/24 13:39 Resp 16 06/09/24 13:39 BP 146/88 06/09/24 13:39 Pulse Ox 98 06/09/24 13:39 FiO2 Intake & Output 06/08/24 06/09/24 06/09/24 18:59 06:59 18:59 Weight 68.946 kg - Constitutional General appearance: Present: cooperative - EENT Eyes: Present: EOMI ENT: Present: hearing grossly normal - Neck Neck: Present: normal ROM - Respiratory Respiratory: bilateral: CTA - Cardiovascular Rhythm: regular Heart sounds: normal: S1, S2 - Integumentary Integumentary: Present: normal turgor - Musculoskeletal Musculoskeletal: Present: gait normal - Psychiatric Psychiatric: Present: A&O x's 3, appropriate affect, intact judgment & insight - Additional findings Additional findings: Breast Exam: BRA: 38D Inspection: Bilateral grade 2 ptosis Right breast slightly smaller than left breast, well-healed scar from prior surgery Palpation: Right breast: Multi-positional exam no dominant masses or nodules of concern. Postsurgical and radiation changes; the patient has some scabbing of the right nipple complex which occurred after the radiation and this has resolved No lumps masses or nodules are noted at this site Right axilla: No adenopathy of concern Left breast: Multi-positional exam no dominant masses or nodules of concern, but some slight increased fullness in the UOQ Left axilla: No adenopathy of concern Assessment and Plan Assessment: Impression: Patient doing well status post right breast lumpectomy and radiation therapy Patient status post neoadjuvant chemotherapy Patient presently on anastrozole bilateral mammogram on 01-12-24 BIRAD 3; repeat bilateral mammogram in 6 months Plan: Continue to follow with medical oncology Continue to follow with radiation oncology Bilateral mammogram in July 2025, ultrasound of left breast UOQ secondary to slight increased fullness with examination here at that time scabbing right nipple resolved CC: DR. Reyes
== END ==
LOC: WWCWWP 12:50
PROVIDERS: ATTEND Surgery
DX: C50.912 Malignant neoplasm of unspecified site of left female breast (principal); Z92.21 Personal history of antineoplastic chemotherapy; Z98.890 Other specified postprocedural states; Z79.811 Long term (current) use of aromatase inhibitors; Z91.048 Other nonmedicinal substance allergy status

== ENCOUNTER → 2024-08-05 | Outpatient (CLI) | payer BC ==
[2024-08-05 11:26] VITALS: BP 134/84; PULSE 79; RESP 16; TEMP 97.9
--- NOTE | 2024-08-05 11:43 | P.PN ---
Subjective Progress Note Date: 08/05/24 Principal diagnosis: invasive lobular cancer right breast [id number]+Pr+Her2-G2 Subjective Progress Note Date: 06/09/24 07/16/23 Principal diagnosis: [id number]+Her2-G2 invasive ductal with lobular features cancer of the right breast, 02-06-22 DX. 07-16-23 Principal diagnosis: invasive lobular cancer right breast [id number]+Pr+Her2-G2 03-05-23 invasive lobular cancer right breast [id number]+Pr+Her2-G2 Malou is a 46-year-old white female seen in consultation for Dr. Reyes regarding a biopsy-proven invasive ductal carcinoma of the right breast. She underwent a bilateral mammogram on . This revealed on the right a scar marker and some underlying architectural distortion. This led to additional workup of the right breast including an ultrasound which led to an ultrasound- guided core biopsy on [id number]. On the diagnostic ultrasound she was noted to have in the right breast a 2.3 cm heterogeneous irregular area. On the left breast cyst were identified but no lesions of concern. The biopsy revealed ER/ND positive HER-2/franko negative G2 invasive ductal carcinoma with lobular features. She had a right breast biopsy in the past 1994 which was benign. She had a left breast needle biopsy in the past, about 5 years ago which was benign. She could feel a lesion in her right breast for about 6 months. It did increase in size. It is painful. She is not complaining of any nipple discharge or skin changes. She is not complaining of any recent trauma or infection in the breast. Genetic testing was performed which was negative Metastatic workup including bone scan and CT chest abdomen and pelvis was negative Oncotype was 44 Case was presented at tumor board on 1322. Secondary to high Oncotype score this will be discussed with Dr. Lou for neoadjuvant chemotherapy. Breast MRI was performed which did not reveal any lesions of concern in the left breast, in the right breast heterogeneous enhancement involving the outer half was identified. The AP length of the abnormal enhancement was 11 cm x 5 cm. 06-19-22 The patient received 4 courses of A/C, she will have 4 courses of Taxol she has received 1. This is given every 2 weeks. She believes that the tumor has decreased in size. She is tolerating the chemotherapy but complaining of fatigue. 08-21-22 Ifrah has completed her soco-adjuvant chemotherapy; approximately 4 weeks ago for a [id number]+ND+Her2-G2 invasive lobular cancer of the right breast. She feels the tumor has decreased in size. Breast MRI performed on 6122. This revealed partial positive treatment response to no malignancy in the right breast the lesion has decreased from 11 cm to 2.1 x 0.9 cm. None mass enhancement is approximately 1.9 x 1.4 cm. No new areas of path logic enhancement in the right breast are identified. No lesions of concern are noted in the left breast No pathologic adenopathy was noted 03-05-23 right breast invasive ductal cancer lobular features; [id number]+Pr+Her2- intermediate grade oncotype of 44. She underwent neoadjuvant chemotherapy followed by lumpectomy with sentinel node sampling revealing a stage IA disease. The patient had reexcision due to positive margins and repeat margins were negative. She underwent radiation to the breast and regional nodes followed by a boost finishing radiation on . She is now on anastrozole. Radiation oncology note [id number] reviewed Medical oncology note [id number] reviewed 07-16-23 right breast invasive ductal cancer lobular features; [id number]+Pr+Her2- intermediate grade oncotype of 44. She underwent neoadjuvant chemotherapy followed by lumpectomy with sentinel node sampling revealing a stage IA disease. The patient had reexcision due to positive margins and repeat margins were negative. She underwent radiation to the breast and regional nodes followed by a boost finishing radiation on . She is now on anastrozole. Bilateral mammogram on 07-07-23 BIRAD 3; repeat bilateral mammogram in 6 months Masses or nodules of concern in either breast. 06-09-24 right breast invasive ductal cancer lobular features; [id number]+Pr+Her2- intermediate grade oncotype of 44. She underwent neoadjuvant chemotherapy followed by lumpectomy with sentinel node sampling revealing a stage IA disease. The patient had re-excision due to positive margins and repeat margins were negative. She underwent radiation to the breast and regional nodes followed by a boost finishing radiation on . She is now on anastrozole. Bilateral mammogram on 07-07-23 BIRAD 3; repeat bilateral mammogram in 6 months; repeat bilateral mammogram 01-12-24 BIRAD 3 bilateral mammogram in 6 months No masses or nodules of concern in either breast, but some slight tenderness in the UOQ of hte left breast. She had to reschedule because her mother got sick and . 08-05-24 invasive lobular cancer right breast [id number]+Pr+Her2-G2 03-05-23 She underwent neoadjuvant chemotherapy followed by lumpectomy with sentinel node sampling revealing a stage Ia disease. She had reexcision due to positive margins and repeat margins were negative. She underwent radiation to the breast and regional nodes followed by a boost finishing radiation on 01-01-2023. She is now on anastrozole She is tolerating this without difficulty. The patient on 08 01 24 had a bilateral mammogram and a left breast ultrasound the findings were considered BI-RADS 3 she was noted to have a 4 mm cystic lesion in the 12:00 region of the left breast and diagnostic breast ultrasound of the left breast in 6 months was recommended. Radiographically no other lesions of concern were noted in the right or left breast on mammogram. She has never had any surgery on the left breast. She does have a fungal infection under the left breast which she has treated with nystatin powder without resolution. Caffiene: 2 cups/day nicotine: stopped 6 years ago; used to smoke 1 PPD for 20 years chocolate: occasional Family History: paternal grandmother breast cancer 40 paternal cousin: breast cancer 56 Hormonal History: menarche: 10 M2 partial hysterectomy abnormal cells at 38; they left her ovaries hormones: none BCP: none Surgical History: Partial hysterectomy did not take ovaries Tonsillectomy Cyst removed right breast cyst removed right wrist right breast lumpectomy and SNB Medical History: HTN hypothyroid double vision Social HIstory: nicotine: as above alcohol: none drugs: none - Constitutional Constitutional: Denies chills, Denies fever - EENT Eyes: denies blurred vision, denies pain Ears: deny: decreased hearing, tinnitus Ears, nose, mouth and throat: Denies headache, Denies sore throat - Breasts Breasts: bilateral: as per HPI - Cardiovascular Cardiovascular: Denies chest pain, Denies shortness of breath - Respiratory Respiratory: Denies cough - Gastrointestinal Gastrointestinal: Denies abdominal pain, Denies diarrhea, Denies nausea, Denies vomiting - Genitourinary (Female) Genitourinary: Denies dysuria, Denies hematuria - Menstruation Menstruation: Reports post hysterectomy - Musculoskeletal Musculoskeletal: Denies myalgias - Integumentary Integumentary: Denies pruritus, Denies rash - Neurological Neurological: Denies numbness, Denies weakness - Psychiatric Psychiatric: Denies anxiety, Denies depression - Endocrine Comment: hypothyroid Endocrine: Denies fatigue, Denies weight change - Hematologic/Lymphatic Comment: none - Allergic/Immunologic Allergic/Immunologic: Reports as per HPI Past Medical History Past Medical History: Hypertension, Thyroid Disorder Additional Past Medical History / Comment(s): Hypothyroid.. History of Any Multi-Drug Resistant Organisms: None Reported Past Surgical History: Hysterectomy, Tonsillectomy Additional Past Surgical History / Comment(s): Right Breast incisional breast biopsy 1989??. Right wrist cyst removal. Past Anesthesia/Blood Transfusion Reactions: No Reported Reaction Past Psychological History: No Psychological Hx Reported Smoking Status: Former smoker Past Alcohol Use History: None Reported Additional Past Alcohol Use History / Comment(s): quit smoling 10 years ago Past Drug Use History: None Reported Medications and Allergies Home Medications Medication Instructions Recorded Confirmed Type Metoprolol Succinate [Toprol XL] 50 mg PO DAILY 01/08/22 02/12/22 History Thyroid,Pork [[place] Thyroid] 90 mg PO DAILY 01/08/22 02/12/22 History hydrALAZINE HCL 75 mg PO DAILY 01/08/22 02/12/22 History Allergies Allergy/AdvReac Type Severity Reaction Status Date / Time No Known Allergies Allergy Verified 02/12/22 10:54 Objective - Vital Signs Vital signs: Vital Signs Temp 97.9 F 08/05/24 11:24 Pulse 79 08/05/24 11:24 Resp 16 08/05/24 11:24 BP 134/84 08/05/24 11:24 Pulse Ox 97 08/05/24 11:24 FiO2 Intake & Output 08/04/24 08/05/24 08/05/24 18:59 06:59 18:59 Weight 68.946 kg - Constitutional General appearance: Present: cooperative - EENT Eyes: Present: EOMI - Neck Neck: Present: normal ROM - Respiratory Respiratory: bilateral: CTA - Cardiovascular Rhythm: regular Heart sounds: normal: S1, S2 - Integumentary Integumentary: Present: normal turgor - Musculoskeletal Musculoskeletal: Present: gait normal - Psychiatric Psychiatric: Present: A&O x's 3, appropriate affect, intact judgment & insight - Additional findings Additional findings: Breast Exam: BRA: 38D Inspection: Bilateral grade 2 ptosis Right breast slightly smaller than left breast, well-healed scar from prior surgery Palpation: Right breast: Multi-positional exam no dominant masses or nodules of concern. Postsurgical and radiation changes; the patient has some scabbing of the right nipple complex which occurred after the radiation and this has resolved No lumps masses or nodules are noted at this site Right axilla: No adenopathy of concern Left breast: Multi-positional exam no dominant masses or nodules of concern, fungal infection underneath the breast Left axilla: No adenopathy of concern Assessment and Plan Assessment: Impression: Patient doing well status post right breast lumpectomy and radiation therapy Patient status post neoadjuvant chemotherapy Patient presently on anastrozole bilateral mammogram on 08-01-24; and ultrasound of the left breast 08 01 24, BI- RADS 3 repeat left breast ultrasound in 6 months Plan: Continue to follow with medical oncology Continue to follow with radiation oncology Left breast ultrasound in 6 months with appointment at that time Follow-up sooner any questions or concerns Nystatin cream for fungal infection under left breast CC: DR. Reyes
== END ==
LOC: WWCWWP 11:16
PROVIDERS: ATTEND Surgery
DX: Z12.31 Encounter for screening mammogram for malignant neoplasm of breast (principal); Z79.811 Long term (current) use of aromatase inhibitors; Z98.890 Other specified postprocedural states; Z92.3 Personal history of irradiation; Z91.048 Other nonmedicinal substance allergy status; Z87.891 Personal history of nicotine dependence